=== PATIENT | female | born 1945 | race Caucasian/White ===

== ENCOUNTER 2016-12-02 14:07 | Day surgery (SDC) | payer MEDICARE ==
[~2016-12-02 14:07] MED LIST: ALLO100T PO; AMLO10TA2 PO; APIDINJ2 SQ; APIX5TAB PO; D3 U5000 PO; DIGO0.12 PO; DILT-48 PO; ENAL20TA PO; FURO40TA PO; IRON18TA2 PO; KRIL1000 PO; LANTINJ SQ; LEVO50TA4 PO; METO-489 PO; POTA-71; PRIL20CA9 PO; SIMV40TA PO; TERA2CAP3 PO
--- NOTE | 2016-12-02 15:35 | RADRPT ---
EXAM DATE/TIME: 12/02/2016 00:00 [facility] COMPARISON : No previous studies available for comparison. INDICATIONS : renal artery stenosis OBJECTIVE: Temperature: 98.0 Heart Rate: 68 Blood Pressure: 134/67 Respiratory: 18 Oximetry: 96 PNEUMONIA VACCINE: NO HISTORY OF PRESENT ILLNESS: 71-year-old female being seen secondary to bilateral renal artery stenoses. Patient has chronic renal insufficiency as well as hypertension requiring multiple antihypertensive medications. Angiography w ith intervention requested. Patient is on Eliquis for A. fib. She reports a fair amount of bleeding a t the time of her colonoscopy despite holding the medication. PAST MEDICAL HISTORY : Diabetes mellitus 1. Hypertension. gout a fib Hypothyroidism. Arthritis. panic attacks PAST SURGICAL HISTORY : pacemaker Cholecystectomy. cataracts Hysterectomy. thyroidectomy neck surgery SOCIAL HISTORY : No alcohol use. none. ALLERGIES: codeine gabapentin allopurinol 100 mg q.d. amlodipine 10 mg q.d. Lanoxin (Digoxin) 0.125 mg q.d. diltiazem er 240 mg q.d. Eliquis (Apixaban)5 mg b.i.d. enalapril 20 mg b.i.d. Lasix (Furosemide)40 mg b.i.d. levothyroxine 50 mcg mg q.d. metoprolol/hctz 100-12.5 mg prn Prilosec (Omeprazole)20 mg q.d. PHYSICAL EXAMINATION: General: Awake and alert. In no acute distress. Cardiovascular: Irregular heart rate. No murmurs or rubs. Respiratory: Clear to auscultation bilaterally. IMAGING STUDIES: CTA with runoff November 03, 2016 from [facility]. I reviewed these images. The patient has calci fied atherosclerotic plaque generating a bilateral 70-80% stenoses of the renal artery origins. No in flow is patent. ASSESSMENT: Bilateral high grade renal artery stenoses in a patient with a multi-antihypertensive medications and chronic renal insufficiency. I discussed with the patient the risks, benefits, and alternatives rega rding renal artery stenosis and stenting. I informed the patient that should we proceed with renal ar carmelo stenting this would not return her kidney function to normal but would help maintain the functio n she has a may be improve it somewhat. It may benefit her with respect to her hypertension. We will hold the Eliquis for 5 days secondary to her issue with bleeding during colonoscopy. She fully unders tood and wished to proceed. PLAN: Bilateral renal angiography and possible stent placement. TIME SPENT: <20 minutes Abhi Pena Jr., MD on December 02, 2016 at 15:22 Board Certified Radiologist. This report was verified electronically.
== END 2016-12-02 15:15 | disposition home or self-care (01) ==
LOC: HROP 14:07 → HRIP 14:08 → HROP 15:15
PROVIDERS: ATTEND Physician Assistant Medical
DX: I70.1 Atherosclerosis of renal artery (principal); I48.91 Unspecified atrial fibrillation; N18.9 Chronic kidney disease, unspecified; I12.9 Hypertensive chronic kidney disease with stage 1 through stage 4 chronic kidney disease, or unspecified chronic kidney disease; E11.22 Type 2 diabetes mellitus with diabetic chronic kidney disease; E03.9 Hypothyroidism, unspecified; M10.9 Gout, unspecified; Z90.49 Acquired absence of other specified parts of digestive tract; Z95.0 Presence of cardiac pacemaker
CPT/HCPCS: 99213; G0463

== ENCOUNTER 2016-12-08 08:24 | Day surgery (SDC) | payer MEDICARE ==
[2016-12-08] VITALS (7 sets, daily range): BP systolic 133–156; BP diastolic 67–90; PULSE 68–73; RESP 16–18; TEMP 97.6–97.7; O2SAT 93–98
[~2016-12-08] VITALS: Ht 152.4 cm; Wt 104.5 kg
[2016-12-08] MEDS ORDERED: SODIUM CHLOR 0.9% 1000 ML INJ 1,000 ML IV SCH (09:00)
[2016-12-08] MEDS ORDERED: PRIL20TA2 (09:07)
[2016-12-08 09:22] LABS: AUTOMATED NEUTROPHIL # 6.6 TH/MM3 (1.8-7.7); BASOPHIL # 0.1 TH/MM3 (0-0.2); BASOPHIL % 0.7 % (0.0-2.0); EOSINOPHIL # 0.3 TH/MM3 (0-0.4); EOSINOPHIL % 2.5 % (0.0-4.0); HEMATOCRIT 33.3 % (35.0-46.0); HEMO FLAGS DIFF FINAL; LYMPH % 25.2 % (9.0-44.0); LYMPHOCYTE # 2.7 TH/MM3 (1.0-4.8); MEAN CELL VOLUME 89.7 FL (80.0-100.0); MEAN CORPUSCULAR HEMOGLOBIN 29.4 PG (27.0-34.0); MEAN CORPUSCULAR HGB CONC 32.8 % (32.0-36.0); MONO % 9.2 % (0.0-8.0); NEUT % 62.4 % (16.0-70.0); PLATELET COUNT 145 TH/MM3 (150-450); RED BLOOD COUNT 3.71 MIL/MM3 (4.00-5.30); RED CELL DISTRIBUTION WIDTH 17.7 % (11.6-17.2); WHITE BLOOD COUNT 10.5 TH/MM3 (4.0-11.0)
[2016-12-08 09:33] LABS: APTT (PATIENT) 25.9 SEC (24.3-30.1); INTERNATIONAL NORMALIZED RATIO 1.1 RATIO; PROTHROMBIN TIME - PATIENT 11.9 SEC (9.8-11.6)
[2016-12-08] MEDS ORDERED: MIDAZOLAM HCL 2 MG/2 ML VIAL ONE ×2 (13:02→13:42)
[2016-12-08] MEDS ORDERED: fentaNYL CITRATE 250 MCG/5 ML AMP ONE (13:03)
[2016-12-08] MEDS ORDERED: LORazepam 2 MG/ML VIAL ONE (13:27)
[2016-12-08] MEDS ORDERED: HEPARIN SODIUM - IV 10,000 UNITS/10 ML VIAL ONE (14:28)
[2016-12-08] MEDS ORDERED: ceFAZolin 2 GM PREMIX 50 ML ONE (14:32)
--- NOTE | 2016-12-08 14:41 | PD.RAD ---
Post Procedure Progress Note Pre Procedure Diagnosis: (1) CKD (chronic kidney disease) (2) Hypertension (3) Renal artery stenosis, [place], bilateral Post Procedure Diagnosis: (1) CKD (chronic kidney disease) (2) Hypertension (3) Renal artery stenosis, [place], bilateral Procedure Date: Dec 08, 2016 Supervising Radiologist: Abhi Pena JR Proceduralist/Assist: Yuliya Tierney, RT(R), Leelee Saunders RT(R)() Anesthesia: Conscious Sedation Plan of Activity Patient to Unit: ROPU Patient Condition: Good See PACS Report for procedural detail/treatment Vascular-Arterial Procedure Procedure 1 Procedure Site: Right Renal, Left Renal Procedure(s): Stent Placement Access Access Site(s): Right Femoral Artery Closure Site(s): Right vascular closure device Findings: Bilateral renal artery stenosis responded well to primary stenting. Plan F/U with IR in 1 week Timothye Pratibha tomorrow Jr. Jean,Abhi Pereira MD Dec 08, 2016 14:41
[2016-12-08] MEDS ORDERED: IODIXANOL 320 MG/ML 50 ML VIAL (for RAD SPEC) I-ARTERIAL ONE (14:50)
--- NOTE | 2016-12-09 10:40 | RADRPT ---
EXAM DATE/TIME: 12/08/2016 12:17 [facility] COMPARISON: No previous studies available for comparison. INDICATIONS : Patient is in need of a bilateral renal angiogram with stenting due to bilateral high grade stenosis. The patient has renal insufficiency and refractory hypertension. MEDICAL HISTORY : History of HTN, DM, AFIB, gout, hyperthyroidism, legal blindness, chronic lower extremity edema and c ellulitis. SURGICAL HISTORY : History of colonoscopy, pacemaker, cholecystectomy, catract removal, hysterectomy, thyroidectomy, adán ast biopsy, neck surgery, knee surgery. ENCOUNTER: Initial ACUITY: 1 month PAIN SCORE: 0/10 FLUORO TIME: 10.3 minutes IMAGE SERIES: 20 ACCESS SITE: Right Femoral artery SEDATION TIME: 60 minutes CONTRAST: 1.) 107 cc Visipaque (iodixanol) MEDICATION(S): 1.) 1 mg lorazepam (Ativan) IV 2.) 3.5 mg midazolam (Versed) IV 3.) 175 mcg fentanyl (Sublimaze) IV 4.) 3000 units Heparin IV 5.) 1 g cefazolin (Ancef) IV Vancomycin within 2 hrs of procedure, Ancef (or alternative) within 1 hr of procedure. DEVICE(S): 1.) Right renal artery 6mm x 18mm x 150cm stent (balloon expanding) 2.) Left renal artery 5mm x 15mm x 150m stent (balloon expanding) 3.) Right common femoral artery 6Fr Angio-Seal PROCEDURE : 1. Ultrasound-guided puncture of the access site. 2. Angiography of the access site prior to closure device. 3. Conscious sedation with continuous EKG and Oximetry monitoring. 4. Percutaneous closure of the access site. 5. Angiography of the right renal artery 6. Angiography of the left renal artery 7. Primary stenting of the right renal artery 8. Primary stenting of the left renal artery The risks, benefits and alternatives to the procedure were explained and verbal and written consent w as obtained. I explained to the patient the need for stenting to try and preserve renal function as w ell as to improve her blood pressure. I informed her as I did at the time of the consult that the pro cedure may not benefit of either. The site was prepped in sterile fashion. Full sterile technique wa s used, including cap, mask, sterile gloves and gown and a large sterile sheet. Hand hygiene and 2% chlorhexidine and/or betadine/alcohol prep was utilized per protocol for cutaneous antisepsis. The s kin and subcutaneous tissues were infiltrated with local anesthetic solution. With ultrasound and fluoroscopic guidance the right common femoral artery was punctured and a vascula r sheath was placed. Angiography of the common femoral artery was performed for evaluation prior to percutaneous closure device placement. A 4 Turkish sheath was placed in the right groin. An Omni Flush catheter was passed into the abdominal aorta and abdominal aortogram performed. These images reveal bilateral renal artery stenoses as seen on the prior imaging. The right renal artery was selected with a contra catheter. Selective angiogra phy shows concentric atherosclerotic plaque involving the origin of the right renal artery extending for proximally 8 mm from the origin. This generates a 60-70% stenosis. Exchange for a 6 Turkish sheath was performed. An 018 wire was passed into the peripheral aspect of the right renal artery. Over thi s a 6 mm x 18 mm express balloon expandable stent was deployed. A followup angiogram shows resolution of the previously seen stenosis with good antegrade flow through the previously stenotic segment. At tention was then turned to the left renal artery. This was selected and the same fashion and angiogra phy reveals a 60% stenosis at the origin extending for proximally 9 mm. A 5 mm x 15 mm express stent was deployed within the left renal artery. Followup angiography shows resolution of the stenosis with good antegrade flow through the previously stenotic segment. Hemostasis was obtained with the prescribed medicated closure device. Conscious sedation was perform ed with the prescribed dosages and duration as above in the presence of an independent trained radiol ogy nurse to assist in the monitoring of the patient. EKG and oximetry remained stable throughout th e procedure. CONCLUSION: Significant bilateral renal artery stenoses which responded well to primary stenting. Abhi Pena Jr., MD on December 09, 2016 at 10:11 Board Certified Radiologist. This report was verified electronically.
== END 2016-12-08 17:45 | disposition home or self-care (01) ==
LOC: HROP 08:24 → HRIP 08:25 → HROP 17:45
PROVIDERS: ATTEND Physician Assistant Medical
DX: I70.1 Atherosclerosis of renal artery (principal); I12.9 Hypertensive chronic kidney disease with stage 1 through stage 4 chronic kidney disease, or unspecified chronic kidney disease; N18.9 Chronic kidney disease, unspecified; E11.22 Type 2 diabetes mellitus with diabetic chronic kidney disease; I48.91 Unspecified atrial fibrillation; M10.9 Gout, unspecified; E05.90 Thyrotoxicosis, unspecified without thyrotoxic crisis or storm; H54.8 Legal blindness, as defined in USA; R60.0 Localized edema
CPT/HCPCS: 36252; 37236; 37237; 76937; 85025; 85610; 85730; 99152; 99153; C1760; C1769; C1874; C1876; C1887; C1894; J0690; J1644; J2060; J2250; J3010; J7030; Q9967

== ENCOUNTER 2016-12-15 13:12 | Day surgery (SDC) | payer MEDICARE ==
[~2016-12-15 13:12] MED LIST changes: -PRIL20CA9 PO; +PRIL20TA2
--- NOTE | 2016-12-16 11:59 | RADRPT ---
EXAM DATE/TIME: 12/15/2016 00:00 [facility] COMPARISON : No previous studies available for comparison. INDICATIONS : Followup renal artery intervention HISTORY OF PRESENT ILLNESS: The patient is approximately one week status post bilateral renal artery stenting. Patient denies any problems. PHYSICAL EXAMINATION: General: Patient is awake and alert. No acute distress or pain. Right groin: No ecchymosis or hematoma. Access site is healing nicely. No erythema. ASSESSMENT: Patient doing well status post bilateral renal artery stenting. PLAN: Maintain follow up with primary as previously described. TIME SPENT: <15 minutes>> Abhi Pena Jr., MD on December 16, 2016 at 11:53 Board Certified Radiologist. This report was verified electronically.
== END 2016-12-15 13:55 | disposition home or self-care (01) ==
LOC: HROP 13:12 → HRIP 13:13 → HROP 13:55
PROVIDERS: ATTEND Radiology Body Imaging
DX: I70.1 Atherosclerosis of renal artery (principal)

== ENCOUNTER 2017-02-05 13:56 | Inpatient (IN) | payer MEDICARE ==
[~2017-02-05] VITALS: Ht 152.4 cm; Wt 104.6 kg
[2017-02-05 14:09] VITALS: BP 127/60; PULSE 72; RESP 16; TEMP 98.5; O2SAT 97
[2017-02-05] MEDS ORDERED: FERR325C PO (15:03)
--- NOTE | 2017-02-05 15:35 | PD ---
HPI Chief Complaint: Skin Problem Time Seen by Provider: 15:12 Travel History International Travel<30 days: No Contact w/Intl Traveler<30days: No Traveled to known affect area: No History of Present Illness HPI This 71-year-old female is complaining of swelling and redness of her left leg. She is having pain in the leg and it makes it difficult for her to walk. She has a history of diabetes. She has had a lot of infections in her legs in the past which is been on antibiotics. Her right leg has been affecting most of the time. She is on Eliquis for atrial fibrillation. She has a pacemaker. She is on Lantus twice daily for her diabetes. She is not aware of fever or chills. She was in a usual state of health until Tuesday. On Tuesday she was having persistent nausea and vomiting was unable to hold anything down. She is unable to take her Eliquis on that day. she also had some nausea and vomiting that started feeling better and then Tuesday thought she was okay she started having pain in her leg at that time. She had stents put in her renal arteries in November for renal artery stenosis. PFSH Past Medical History Cancer: No Cardiovascular Problems: Yes (PACER) High Cholesterol: Yes Diabetes: Yes Patient Takes Glucophage: No Endocrine: No Gastrointestinal Disorders: Yes (GERD) Genitourinary: No Hepatitis: No Hiatal Hernia: No Hypertension: Yes Immune Disorder: No Musculoskeletal: No Neurologic: No Psychiatric: No Reproductive: No Respiratory: No Pancreatitis: Yes Thyroid Disease: Yes Influenza Vaccination: No Past Surgical History Abdominal Surgery: Yes (COLONOSCOPY) AICD: No Cardiac Surgery: Yes Ear Surgery: No Endocrine Surgery: Yes (PARTIAL LEFT REMOVAL OF THYROID) Eye Surgery: Yes (BILATERAL CATARACTS+ LASER SGY) Genitourinary Surgery: No Gynecologic Surgery: Yes (LUCY) Hysterectomy: Yes Joint Replacement: No Oral Surgery: No Pacemaker: Yes Thoracic Surgery: Yes (RIGHT BREAST BX) Other Surgery: Yes Social History Alcohol Use: No Tobacco Use: No Substance Use: No Allergies-Medications (Allergen,Severity, Reaction): Coded Allergies: codeine (Unverified Allergy, Severe, Respiratory Failure, 02/05/17) Reported Meds & Prescriptions Reported Meds & Active Scripts Active Reported Metoprolol Tartrate 100 Mg Tab 100 Mg PO BID Iron (Ferrous Sulfate) 325 Mg Cap 65 Mg PO DAILY Prilosec (Omeprazole Magnesium) 20 Mg Tab D3 Ultra Strength (Cholecalciferol) 5,000 Unit Cap 5,000 Units PO DAILY [Potassium Gluconate] 99 Mg BID Levothyroxine (Levothyroxine Sodium) 50 Mcg Tab 125 Mcg PO DAILY Amlodipine (Amlodipine Besylate) 10 Mg Tab 10 Mg PO DAILY Digoxin 0.125 Mg Tab 0.125 Mg PO EVERY OTHER DAY Allopurinol 100 Mg Tab 100 Mg PO DAILY Terazosin (Terazosin HCl) 2 Mg Cap 2 Mg PO BID Furosemide 40 Mg Tab 80 Mg PO AC BREAKFAST Furosemide 40 Mg Tab 40 Mg PO AC LUNCH Simvastatin 40 Mg Tab 40 Mg PO HS Diltiazem ER 24 HR 240 Mg Caper 240 Mg PO DAILY Enalapril (Enalapril Maleate) 20 Mg Tab 20 Mg PO BID Eliquis (Apixaban) 5 Mg Tab 5 Mg PO BID Apidra Solostar Pen Inj (Insulin Glulisine Inj) 300 Unit/3 Ml Pen 8 Units SQ TIDAC Lantus Solostar Pen Inj (Insulin Glargine) 300 Unit/3 Ml Pen 80 Units SQ BID Review of Systems General / Constitutional: No: Fever, Chills Eyes: No: Diploplia, Blurred Vision HENT: No: Headaches Cardiovascular: No: Chest Pain or Discomfort, Palpitations Respiratory: No: Cough, Shortness of Breath Gastrointestinal: No: Vomiting, Diarrhea Genitourinary: No: Urgency Musculoskeletal: Positive: Myalgias, Pain Skin: Positive Rash Hematologic/Lymphatic: No: Easy Bruising Physical Exam Narrative GENERAL: Obese female SKIN: Focused skin assessment warm/dry. HEAD: Atraumatic. Normocephalic. EYES: Pupils equal and round. No scleral icterus. No injection or drainage. ENT: No nasal bleeding or discharge. Mucous membranes pink and moist. NECK: Trachea midline. No JVD. CARDIOVASCULAR: Regular rate and rhythm. No murmur appreciated. RESPIRATORY: No accessory muscle use. Clear to auscultation. Breath sounds equal bilaterally. GASTROINTESTINAL: Abdomen soft, non-tender, nondistended. Hepatic and splenic margins not palpable. MUSCULOSKELETAL: No obvious deformities. No clubbing. No cyanosis. No edema. Both legs are quite large. Her left leg has circumferential erythema of the lower leg. There is a erythematous hot area on the medial aspect of the left thigh. There is a small pustular lesion on the lateral aspect of the right lower leg NEUROLOGICAL: Awake and alert. No obvious cranial nerve deficits. Motor grossly within normal limits. Normal speech. PSYCHIATRIC: Appropriate mood and affect; insight and judgment normal. Data Data Last Documented VS Vital Signs Date Time Temp Pulse Resp B/P (MAP) Pulse Ox O2 Delivery O2 Flow Rate FiO2 02/05/17 17:04 70 18 128/64 (85) 97 Room Air 02/05/17 14:09 98.5 Orders Orders Complete Blood Count With Diff (02/05/17:21) Comprehensive Metabolic Panel (02/05/17:21) Lactic Acid Sepsis Protocol (02/05/17:21) Urinalysis - C+S If Indicated (02/05/17:21) Blood Culture (02/05/17:21) Blood Glucose (02/05/17:21) Iv Access Insert/Monitor (02/05/17:21) Oximetry (02/05/17:21) Us Leg Venous Doppler (02/05/17 15:21) Digoxin (02/05/17 17:51) Thyroid Stimulating Hormone (02/05/17 17:51) Vancomycin Inj (Vancomycin Inj) (02/05/17 18:00) Sodium Chlor 0.9% 1000 Ml Inj (Ns 1000 M (02/05/17 18:00) Admit Order (Ed Use Only) (02/05/17 17:57) Admit To Inpatient (02/05/17 ) Vital Signs (Adult) Q4H (02/05/17 17:57) Diet 1800 Ada Cons Carb (02/05/17 Dinner) Sodium Chloride 0.9% Flush (Ns Flush) (02/05/17 21:00) Sodium Chloride 0.9% Flush (Ns Flush) (02/05/17 18:00) Vancomycin Consult Pharmacy (Vancomycin (02/05/17 18:00) Acetaminophen (Tylenol) (02/05/17 18:00) Basic Metabolic Panel (Bmp) (02/06/17 06:00) Complete Blood Count With Diff (02/06/17 06:00) Heparin Inj (Heparin Inj) (02/05/17 20:00) Bedside Glucose AAKASH.CSUGAR (02/05/17 17:57) Blood Glucose Goal (Criteria) (02/05/17 17:57) Hypoglycemia 70 Mg/Dl Or < (02/05/17 17:57) Notify Dr: Other (02/05/17 17:57) Dextrose 50% In Umu (Vial) Inj (D50w (Vi (02/05/17 18:00) Glucagon Inj (Glucagon Inj) (02/05/17 18:00) Insulin Aspart Supplemtl Scale (Novolog (02/05/17 21:00) Allopurinol (Zyloprim) (02/06/17 09:00) Apixaban (Eliquis) (02/05/17 21:00) Digoxin (Lanoxin) (02/07/17 09:00) Diltiazem Cd (Cardizem Cd) (02/06/17 09:00) Enalapril (Vasotec) (02/05/17 21:00) Furosemide (Lasix) (02/06/17 07:00) Terazosin (Hytrin) (02/05/17 21:00) Ferrous Sulfate (Ferrous Sulfate) (02/06/17 09:00) Insulin Detemir Inj (Levemir Inj) (02/05/17 21:00) Insulin Aspart Inj (Novolog Inj) (02/06/17 08:00) Pravastatin (Pravachol) (02/05/17 21:00) Labs Laboratory Tests Test 02/05/17 15:35 02/05/17 15:45 02/05/17 16:50 Urine Color YELLOW Urine Turbidity CLEAR Urine pH 5.5 Urine Specific [place] 1.011 Urine Protein TRACE mg/dL Urine Glucose (UA) NEG mg/dL Urine Ketones NEG mg/dL Urine Occult Blood SMALL Urine Nitrite NEG Urine Bilirubin NEG Urine Leukocyte Esterase NEG Urine WBC 0-2 /hpf Urine Squamous Epithelial Cells 2-4 /hpf Microscopic Urinalysis Comment CULT NOT INDICATED White Blood Count 16.8 TH/MM3 Red Blood Count 3.59 MIL/MM3 Hemoglobin 10.5 GM/DL Hematocrit 32.0 % Mean Corpuscular Volume 89.2 FL Mean Corpuscular Hemoglobin 29.1 PG Mean Corpuscular Hemoglobin Concent 32.7 % Red Cell Distribution Width 16.5 % Platelet Count 159 TH/MM3 Mean Platelet Volume 10.9 FL Neutrophils (%) (Auto) 77.1 % Lymphocytes (%) (Auto) 12.0 % Monocytes (%) (Auto) 10.2 % Eosinophils (%) (Auto) 0.5 % Basophils (%) (Auto) 0.2 % Neutrophils # (Auto) 13.0 TH/MM3 Lymphocytes # (Auto) 2.0 TH/MM3 Monocytes # (Auto) 1.7 TH/MM3 Eosinophils # (Auto) 0.1 TH/MM3 Basophils # (Auto) 0.0 TH/MM3 CBC Comment AUTO DIFF Differential Comment AUTO DIFF CONFIRMED Toxic Granulation 1+ Dohle Bodies PRESENT Platelet Estimate NORMAL Platelet Morphology Comment NORMAL Blood Urea Nitrogen 42 MG/DL Creatinine 2.00 MG/DL Random Glucose 71 MG/DL Total Protein 7.8 GM/DL Albumin 3.5 GM/DL Calcium Level 9.1 MG/DL Alkaline Phosphatase 108 U/L Aspartate Amino Transf (AST/SGOT) 53 U/L Alanine Aminotransferase (ALT/SGPT) 42 U/L Total Bilirubin 0.5 MG/DL Sodium Level 133 MEQ/L Potassium Level 4.3 MEQ/L Chloride Level 95 MEQ/L Carbon Dioxide Level 29.2 MEQ/L Anion Gap 9 MEQ/L Estimat Glomerular Filtration Rate 24 ML/MIN Thyroid Stimulating Hormone 3rd Gen 1.640 uIU/ML Digoxin Level 1.0 NG/ML Lactic Acid Level 1.5 mmol/L MDM Medical Decision Making Medical Screen Exam Complete: Yes Emergency Medical Condition: Yes Medical Record Reviewed: Yes Differential Diagnosis Differential includes cellulitis, DVT, Narrative Course Ultrasound of the leg has been ordered as well as lab work. Disposition will be determined by oncoming physician Diagnosis Primary Impression: Cellulitis of leg, right Ozzie Myers MD Feb 05, 2017 15:35
[2017-02-05 15:49] VITALS: RESP 18; O2SAT 97
[2017-02-05 16:06] LABS: BLOOD, URINE SMALL (NEG); GLUCOSE,URINE NEG (NEG); KETONE, URINE NEG (NEG); NITRITE,URINE NEG (NEG); PH, URINE 5.5 (5.0-8.5)
[2017-02-05 16:14] LABS: ANION GAP 9 MEQ/L (5-15); BASOPHIL % 0.2 % (0.0-2.0); BICARBONATE 29.2 MEQ/L (21.0-32.0); BLOOD UREA NITROGEN 42 MG/DL (7-18); CHLORIDE 95 MEQ/L (98-107); EOSINOPHIL # 0.1 TH/MM3 (0-0.4); EOSINOPHIL % 0.5 % (0.0-4.0); MEAN CELL VOLUME 89.2 FL (80.0-100.0); MEAN CORPUSCULAR HEMOGLOBIN 29.1 PG (27.0-34.0); MEAN CORPUSCULAR HGB CONC 32.7 % (32.0-36.0); MONO % 10.2 % (0.0-8.0); NEUT % 77.1 % (16.0-70.0); PLATELET COUNT 159 TH/MM3 (150-450); RED BLOOD COUNT 3.59 MIL/MM3 (4.00-5.30); RED CELL DISTRIBUTION WIDTH 16.5 % (11.6-17.2); SODIUM (NA) 133 MEQ/L (136-145); WHITE BLOOD COUNT 16.8 TH/MM3 (4.0-11.0)
[2017-02-05 16:17] LABS: ALT (GPT) 42 U/L (10-53); AST (GOT) 53 U/L (15-37); GLOMERULAR FILTRATION RATE 24 ML/MIN (>89)
[2017-02-05 16:18] LABS: POTASSIUM 4.3 MEQ/L (3.5-5.1)
[2017-02-05 16:19] LABS: HEMO FLAGS AUTO DIFF; TOTAL BILIRUBIN ADULT 0.5 MG/DL (0.2-1.0)
[2017-02-05 16:20] LABS: ALKALINE PHOSPHATASE 108 U/L (45-117)
--- NOTE | 2017-02-05 16:40 | RADRPT ---
EXAM DATE/TIME: 02/05/2017 16:12 [facility] COMPARISON: No previous studies available for comparison. INDICATIONS : Left leg swelling and redness. MEDICAL HISTORY : Hypertension. Hypercholesterolemia. Thyroid disease. Renal disease. Diabetes. Pancreatitis. SURGICAL HISTORY : Hysterectomy. Bilateral cataract surgery. Pacemaker. Right breast biopsy. Colonoscopy. Right kn ee scope. Partial thyroidectomy, left. ENCOUNTER: Initial ACUITY: 2 day PAIN SCORE: 8/10 LOCATION: Left leg. TECHNIQUE: Venous ultrasound of the leg was performed from the inguinal ligament to the proximal calf. Real-jaleel e, color Doppler and spectral tracing, compression and augmentation techniques were used. FINDINGS: There is normal compressibility of the deep venous system from the inguinal region to the proximal ca lf. No echogenic clot is seen in the lumen of the common femoral, femoral, popliteal, and posterior tibial veins. There is a normal response of the venous system to proximal and distal augmentation an d respiration. CONCLUSION: Normal examination. Abhi Pena Jr., MD on February 05, 2017 at 16:37 Board Certified Radiologist. This report was verified electronically.
[2017-02-05 16:45] LABS: URINE COLOR YELLOW (YELLW/STRAW); WBC, URINE 0-2 /hpf (0-5)
[2017-02-05 16:46] LABS: COMMENT (UR) CULT NOT INDICATED; CULTURE IF INDICATED CULT NOT INDICATED
[2017-02-05 16:55] LABS: DOHLE BODIES PRESENT (NONE SEEN); PLATELET ESTIMATE SMEAR NORMAL (NORMAL); PLATELET MORPHOLOGY NORMAL (NORMAL); SCAN/DIFF AUTO DIFF CONFIRMED; TOXIC GRANULATION 1+ (NORMAL)
[2017-02-05 17:04] VITALS: BP 128/64; PULSE 70; RESP 18; O2SAT 97
--- NOTE | 2017-02-05 17:48 | PD ---
Physical Exam Narrative Patient was seen by ED physician and signed out to me. Data Data Last Documented VS Vital Signs Date Time Temp Pulse Resp B/P (MAP) Pulse Ox O2 Delivery O2 Flow Rate FiO2 02/05/17 17:04 70 18 128/64 (85) 97 Room Air 02/05/17 14:09 98.5 Orders Orders Complete Blood Count With Diff (02/05/17 15:21) Comprehensive Metabolic Panel (02/05/17 15:21) Lactic Acid Sepsis Protocol (02/05/17 15:21) Urinalysis - C+S If Indicated (02/05/17 15:21) Blood Culture (02/05/17 15:21) Blood Glucose (02/05/17 15:21) Iv Access Insert/Monitor (02/05/17 15:21) Oximetry (02/05/17 15:21) Us Leg Venous Doppler (02/05/17 15:21) Digoxin (02/05/17 17:51) Thyroid Stimulating Hormone (02/05/17 17:51) Vancomycin Inj (Vancomycin Inj) (02/05/17 18:00) Labs Laboratory Tests Test 02/05/17 15:35 02/05/17 15:45 02/05/17 16:50 Urine Color YELLOW Urine Turbidity CLEAR Urine pH 5.5 Urine Specific [place] 1.011 Urine Protein TRACE mg/dL Urine Glucose (UA) NEG mg/dL Urine Ketones NEG mg/dL Urine Occult Blood SMALL Urine Nitrite NEG Urine Bilirubin NEG Urine Leukocyte Esterase NEG Urine WBC 0-2 /hpf Urine Squamous Epithelial Cells 2-4 /hpf Microscopic Urinalysis Comment CULT NOT INDICATED White Blood Count 16.8 TH/MM3 Red Blood Count 3.59 MIL/MM3 Hemoglobin 10.5 GM/DL Hematocrit 32.0 % Mean Corpuscular Volume 89.2 FL Mean Corpuscular Hemoglobin 29.1 PG Mean Corpuscular Hemoglobin Concent 32.7 % Red Cell Distribution Width 16.5 % Platelet Count 159 TH/MM3 Mean Platelet Volume 10.9 FL Neutrophils (%) (Auto) 77.1 % Lymphocytes (%) (Auto) 12.0 % Monocytes (%) (Auto) 10.2 % Eosinophils (%) (Auto) 0.5 % Basophils (%) (Auto) 0.2 % Neutrophils # (Auto) 13.0 TH/MM3 Lymphocytes # (Auto) 2.0 TH/MM3 Monocytes # (Auto) 1.7 TH/MM3 Eosinophils # (Auto) 0.1 TH/MM3 Basophils # (Auto) 0.0 TH/MM3 CBC Comment AUTO DIFF Differential Comment AUTO DIFF CONFIRMED Toxic Granulation 1+ Dohle Bodies PRESENT Platelet Estimate NORMAL Platelet Morphology Comment NORMAL Blood Urea Nitrogen 42 MG/DL Creatinine 2.00 MG/DL Random Glucose 71 MG/DL Total Protein 7.8 GM/DL Albumin 3.5 GM/DL Calcium Level 9.1 MG/DL Alkaline Phosphatase 108 U/L Aspartate Amino Transf (AST/SGOT) 53 U/L Alanine Aminotransferase (ALT/SGPT) 42 U/L Total Bilirubin 0.5 MG/DL Sodium Level 133 MEQ/L Potassium Level 4.3 MEQ/L Chloride Level 95 MEQ/L Carbon Dioxide Level 29.2 MEQ/L Anion Gap 9 MEQ/L Estimat Glomerular Filtration Rate 24 ML/MIN Lactic Acid Level 1.5 mmol/L MDM Supervised Visit with IVETTE: No Interpretation(s) 1745 PM. Last Impressions Lower Extremity Ultrasound 02/05/17 1521 Signed Impressions: Service Date/Time: Sunday, February 05, 2017 16:12 - CONCLUSION: Normal examination. Abhi Pena Jr., MD 1745 PM. CBC WBC 16.8. Hemoglobin 10.5 hematocrit 32.0. 77 neutrophil. Sodium 133. BUN 42. Creatinine 2.0. Glucose 71. Lactic acid 1.5. UA is negative. Narrative Course Normal saline solution 70 cc an hour. Vancomycin 1 g IV. Diagnosis Primary Impression: Left leg cellulitis Additional Impression: CKD (chronic kidney disease) Qualified Codes: N18.4 - Chronic kidney disease, stage 4 (severe) Rogelio Ortiz MD Feb 05, 2017 17:48
[2017-02-05] MEDS ORDERED: GLUCAGON 1 MG/ML VIAL OTHER PRN (18:00)
[2017-02-05] MEDS ORDERED: Vancomycin Consult Pharmacy 1 EA OTHER SCH (18:00)
[2017-02-05] MEDS ORDERED: DEXTROSE 50% IN WATER 50 ML VIAL(D50) IV PUSH PRN (18:00)
[2017-02-05] MEDS ORDERED: SODIUM CHLORIDE 0.9% FLUSH 10 ML FLUSH IV FLUSH PRN (18:00)
[2017-02-05] MEDS ORDERED: VANCOMYCIN INJ 1,000 MG in SODIUM CHLOR 0.9% 250 ML INJ 250 ML IV ONE ×2 (18:00→19:00)
[2017-02-05] MEDS ORDERED: METO100T PO (18:51)
--- NOTE | 2017-02-05 19:06 | HHI.HP ---
HPI [facility] Hospitalists Primary Care Physician Leesa Turk MD Admission Diagnosis left leg cellulitis. Chronic renal disease. Diagnoses: Chief Complaint: Left lower extremity pain and redness Travel History International Travel<30 Days: No Contact w/Intl Traveler <30 Da: No Traveled to Known Affected Are: No Sepsis Criteria SIRS Criteria (2 or more): WBC > 32496, < 4000 or > 10% bands History of Present Illness This patient is a 71-year-old female with diabetes who has come to the hospital with left lower extremity pain for the last 24 hours. She reports chronic skin changes in the lower extremity consistent with venous stasis and lipo sclerosis. The patient has also chronic kidney disease and diabetes. She also trauma to the area but notes over the last wave hours the area in her lateral thigh and medial thigh has become increasingly edematous and erythematous with extreme amount of pain. The pain is severe and worse with touching and relieved with rest. She also fevers objectively but says she has felt warm and has had chills. Her daughter brought her in the hospital for these in issues. She does have leukocytosis. She notes no recent travel or trauma to the area. Patient admitted to the hospital for further evaluation of rapidly progressive cellulitis in diabetic patient Of note the patient has multiple medications which are duplicate in class. She is unsure what she be usually takes. Patient also recently had a evaluation and treatment with renal artery stent with interventional radiology team here at [place]. She has chronic kidney disease but does not have a manager fine Review of Systems Constitutional: COMPLAINS OF: Fever, Chills, Change in appetite, DENIES: Diaphoretic episodes, Fatigue, Weight gain, Weight loss, Dizziness, Night Sweats Endocrine: DENIES: Abnorml menstrual pattern, Heat/cold intolerance, Polydipsia , Polyuria, Polyphagia Eyes: DENIES: Blurred vision, Diplopia, Eye inflammation, Eye pain, Vision loss , Photosensitivity, Double Vision Ears, nose, mouth, throat: DENIES: Tinnitus, Hearing loss, Vertigo, Nasal discharge, Oral lesions, Throat pain, Hoarseness, Ear Pain, Running Nose, Epistaxis, Sinus Pain, Toothache, Odynophagia Respiratory: DENIES: Apneas, Cough, Snoring, Wheezing, Hemoptysis, Sputum production, Shortness of breath Cardiovascular: DENIES: Chest pain, Palpitations, Syncope, Dyspnea on Exertion , PND, Lower Extremity Edema, Orthopnea, Claudication Gastrointestinal: DENIES: Abdominal pain, Black stools, Bloody stools, Constipation, Diarrhea, Nausea, Vomiting, Difficulty Swallowing, Anorexia Genitourinary: DENIES: Abnormal vaginal bleeding, Dysmenorrhea, Dyspareunia, Sexual dysfunction, Urinary frequency, Urinary incontinence, Urgency, Hematuria , Dysuria, Nocturia, Vaginal discharge Musculoskeletal: COMPLAINS OF: Joint pain, DENIES: Muscle aches, Stiffness, Joint Swelling, Back pain, Neck pain Integumentary: DENIES: Abnormal pigmentation, Pruritus, Rash, Nail changes, Breast masses, Breast skin changes, Nipple discharge Hematologic/lymphatic: DENIES: Bruising, Lymphadenopathy Immunologic/allergic: DENIES: Eczema, Urticaria Neurologic: DENIES: Abnormal gait, Headache, Localized weakness, Paresthesias, Seizures, Speech Problems, Tremor, Poor Balance Psychiatric: DENIES: Anxiety, Confusion, Mood changes, Depression, Hallucinations, Agitation, Suicidal Ideation, Homicidal Ideation, Delusions Except as stated in HPI: all other systems reviewed are Neg Past Family Social History Past Medical History Diabetes Atrial fibrillation Past Surgical History Partial thyroidectomy, pacemaker, total abdominal hysterectomy Reported Medications Reviewed in the EMR Allergies: Coded Allergies: codeine (Unverified Allergy, Severe, Respiratory Failure, 02/05/17) Active Ordered Medications Reviewed in the EMR Family History Family history of diabetes and hypertension Social History Lives independently, no tobacco or alcohol dependency Physical Exam Vital Signs Vital Signs Date Time Temp Pulse Resp B/P (MAP) Pulse Ox O2 Delivery O2 Flow Rate FiO2 02/05/17 17:04 70 18 128/64 (85) 97 Room Air 02/05/17 15:49 18 97 Room Air 02/05/17 14:09 98.5 72 16 127/60 (82) 97 Physical Exam GENERAL: This is a well-nourished, well-developed patient, obese female who feels ill SKIN: diffuse erythema and edema of the left lower extremity in the anterior and lateral areas with chronic changes of venous stasis of liposclerosis HEAD: Atraumatic. Normocephalic. No temporal or scalp tenderness. EYES: Pupils equal round and reactive. Extraocular motions intact. No scleral icterus. No injection or drainage. ENT: Nose without bleeding, purulent drainage or septal hematoma. Throat without erythema, tonsillar hypertrophy or exudate. Uvula midline. Airway patent. NECK: Trachea midline. No JVD or lymphadenopathy. Supple, nontender, no meningeal signs. CARDIOVASCULAR: Regular rate and rhythm without murmurs, gallops, or rubs. RESPIRATORY: Clear to auscultation. Breath sounds equal bilaterally. No wheezes , rales, or rhonchi. GASTROINTESTINAL: Abdomen soft, non-tender, nondistended. No hepato-splenomegaly , or palpable masses. No guarding. MUSCULOSKELETAL: Extremities without clubbing, cyanosis, or edema. No joint tenderness, effusion, or edema noted. No calf tenderness. Negative Homans sign bilaterally. NEUROLOGICAL: Awake and alert. Cranial nerves II through XII intact. Motor and sensory grossly within normal limits. Five out of 5 muscle strength in all muscle groups. Normal speech. Laboratory Laboratory Tests Test 02/05/17 15:35 02/05/17 15:45 02/05/17 16:50 Urine Color YELLOW Urine Turbidity CLEAR Urine pH 5.5 Urine Specific [place] 1.011 Urine Protein TRACE Urine Glucose (UA) NEG Urine Ketones NEG Urine Occult Blood SMALL Urine Nitrite NEG Urine Bilirubin NEG Urine Leukocyte Esterase NEG Urine WBC 0-2 Urine Squamous Epithelial Cells 2-4 Microscopic Urinalysis Comment CULT NOT INDICATED White Blood Count 16.8 Red Blood Count 3.59 Hemoglobin 10.5 Hematocrit 32.0 Mean Corpuscular Volume 89.2 Mean Corpuscular Hemoglobin 29.1 Mean Corpuscular Hemoglobin Concent 32.7 Red Cell Distribution Width 16.5 Platelet Count 159 Mean Platelet Volume 10.9 Neutrophils (%) (Auto) 77.1 Lymphocytes (%) (Auto) 12.0 Monocytes (%) (Auto) 10.2 Eosinophils (%) (Auto) 0.5 Basophils (%) (Auto) 0.2 Neutrophils # (Auto) 13.0 Lymphocytes # (Auto) 2.0 Monocytes # (Auto) 1.7 Eosinophils # (Auto) 0.1 Basophils # (Auto) 0.0 CBC Comment AUTO DIFF Differential Comment AUTO DIFF CONFIRMED Toxic Granulation 1+ Dohle Bodies PRESENT Platelet Estimate NORMAL Platelet Morphology Comment NORMAL Blood Urea Nitrogen 42 Creatinine 2.00 Random Glucose 71 Total Protein 7.8 Albumin 3.5 Calcium Level 9.1 Alkaline Phosphatase 108 Aspartate Amino Transf (AST/SGOT) 53 Alanine Aminotransferase (ALT/SGPT) 42 Total Bilirubin 0.5 Sodium Level 133 Potassium Level 4.3 Chloride Level 95 Carbon Dioxide Level 29.2 Anion Gap 9 Estimat Glomerular Filtration Rate 24 Thyroid Stimulating Hormone 3rd Gen 1.640 Lactic Acid Level 1.5 Date/Time Source Procedure Growth Status 02/05/17 15:45 Blood Peripheral Aerobic Blood Culture Pending Received 02/05/17 15:45 Blood Peripheral Anaerobic Blood Culture Pending Received Result Diagram: 02/05/17 1545 02/05/17 1545 Imaging Last Impressions Lower Extremity Ultrasound 02/05/17 1521 Signed Impressions: Service Date/Time: Tuesday, February 05, 2017 16:12 - CONCLUSION: Normal examination. MD Sourav Laird Jr. VTE Risk Assessment Sourav VTE Risk Assessment: Mod/High Risk (score >= 2) [place] Risk Assessment Model Point Value = 1 Point Value = 2 Point Value = 3 Point Value = 5 Age 41-60 Minor surgery BMI > 25 kg/m2 Swollen legs Varicose veins or History of unexplained or recurrent spontaneous Oral contraceptives or hormone replacement Sepsis (< 1 month) Serious lung disease, including pneumonia (< 1 month) Abnormal pulmonary function Acute myocardial infarction Congestive heart failure (< 1 month) History of inflammatory bowel disease Medical patient at bed rest Age 61-74 Arthroscopic surgery Major open surgery (> 45 min) Laparoscopic surgery (> 45 min) Malignancy Confined to bed (> 72 hours) Immobilizing plaster cast Central venous access Age >= 75 History of VTE Family history of VTE Factor V Leiden Prothrombin [id number] Lupus anticoagulant Anticardiolipin antibodies Elevated serum homocysteine Heparin-induced thrombocytopenia Other congenital or acquired thrombophilia Stroke (< 1 month) Elective arthroplasty Hip, pelvis, or leg fracture Acute spinal cord injury (< 1 month) Prophylaxis Regimen Total Risk Factor Score Risk Level Prophylaxis Regimen 0-1 Low Early ambulation 2 Moderate Order ONE of the following: *Sequential Compression Device (SCD) *Heparin 5000 units SQ BID 3-4 Higher Order ONE of the following medications: *Heparin 5000 units SQ TID *Enoxaparin/Lovenox 40 mg SQ daily (WT < 150 kg, CrCl > 30 mL/min) *Enoxaparin/Lovenox 30 mg SQ daily (WT < 150 kg, CrCl > 10-29 mL/min) *Enoxaparin/Lovenox 30 mg SQ BID (WT < 150 kg, CrCl > 30 mL/min) AND/OR *Sequential Compression Device (SCD) 5 or more Highest Order ONE of the following medications: *Heparin 5000 units SQ TID (Preferred with Epidurals) *Enoxaparin/Lovenox 40 mg SQ daily (WT < 150 kg, CrCl > 30 mL/min) *Enoxaparin/Lovenox 30 mg SQ daily (WT < 150 kg, CrCl > 10-29 mL/min) *Enoxaparin/Lovenox 30 mg SQ BID (WT < 150 kg, CrCl > 30 mL/min) AND *Sequential Compression Device (SCD) Assessment and Plan Problem List: (1) Left leg cellulitis ICD Code: L03.116 - Cellulitis of left lower limb Status: Acute Plan: Patient with chronic venous stasis and now with left leg rapid the advancing cellulitis and leukocytosis Continue with IV vancomycin/Zosyn with pharmacy to follow Follow cultures ID to follow (2) Hypertension ICD Code: I10 - Essential (primary) hypertension Status: Acute Plan: Will need to review home medications as she has significant amount of polypharmacy and duplicate drugs. Continue to follow to avoid nephrotoxic injury We'll follow with IV hydration as well (3) Diabetes mellitus, type II ICD Code: E11.9 - Type 2 diabetes mellitus without complications Status: Acute (4) Hypothyroid ICD Code: E03.9 - Hypothyroidism, unspecified Status: Acute Plan: continue Synthroid (5) Atrial fibrillation ICD Code: I48.91 - Unspecified atrial fibrillation Status: Acute Plan: Patient on Eliquis and Cardizem Patient with pacemaker, continue telemetry, follow electrolytes Code Status Full code Discussed Condition With patient, VINCENT Fair, daughter Physician Certification 2 Midnight Certification Type: Admission for Inpatient Services Order for Inpatient Services The services are ordered in accordance with Medicare regulations or non- Medicare payer requirements, as applicable. In the case of services not specified as inpatient-only, they are appropriately provided as inpatient services in accordance with the 2-midnight benchmark. Estimated LOS (days): 3 3 days is the estimated time the patient will need to remain in the hospital, assuming treatment plan goals are met and no additional complications. Post-Hospital Plan: Home Rupal Shields MD Feb 05, 2017 19:06
[2017-02-05] MEDS: SODIUM CHLOR 0.9% 1000 ML INJ 1,000 ML IV SCH (19:33)
[2017-02-05 20:00] VITALS: BP 130/65; PULSE 78; RESP 18; TEMP 98.2; O2SAT 96
[2017-02-05] MEDS ORDERED: HEPARIN SODIUM - SQ 10,000 UNITS/ML VIAL SQ SCH (20:00)
[2017-02-05] MEDS ORDERED: PIPERACIL-TAZO 4.5 GM PREMIX 100 ML IV SCH (20:00)
[2017-02-05] MEDS ORDERED: METOPROLOL SUCCINATE 50 MG EXTENDED RELEASE TAB PO SCH (21:00)
[2017-02-05] MEDS ORDERED: NON-FORMULARY DRUG (Metoprolol Succinate/HCTZ 100-12.5 ER 1 TAB) PO SCH (21:00)
[2017-02-05] MEDS ORDERED: INSULIN DETEMIR 100 UNITS/ML VIAL SQ SCH (21:00)
[2017-02-05] MEDS: INSULIN ASPART SUPPLEMENTAL SCALE SQ SCH (21:00)
[2017-02-05] MEDS: SODIUM CHLORIDE 0.9% FLUSH 10 ML FLUSH IV FLUSH SCH (21:00)
[2017-02-05] MEDS ORDERED: HYDROCHLOROTHIAZIDE 12.5 MG CAP PO SCH (21:00)
[2017-02-05] MEDS: TERAZOSIN HCL 1 MG CAP PO SCH (22:41)
[2017-02-05] MEDS: PRAVASTATIN SOD 80 MG TAB PO SCH (22:41)
[2017-02-05] MEDS: APIXABAN 5 MG TABLET PO SCH (22:42)
[2017-02-05] MEDS: ENALAPRIL MALEATE 10 MG TAB PO SCH (22:42)
--- NOTE | 2017-02-05 23:23 | HHI.PR ---
Addendum to Inpatient Note Addendum Reason: Additional Documentation Additional Information Patient requesting something stronger than Tylenol for severe leg pain, told her nurse that she takes Tramadol 50 mg P.O. at home, will give one time dose - further management per attending. Dacia Xie Feb 05, 2017 23:23
[2017-02-05] MEDS ORDERED: traMADol HCL 50 MG TAB PO ONE (23:30)
[2017-02-05] MEDS: PIPERACIL-TAZO 2.25 GM PREMIX 50 ML IV SCH (23:40)
[2017-02-06] VITALS: BP 128/59; PULSE 73; RESP 18; TEMP 98.7; O2SAT 96
[2017-02-06 04:00] VITALS: BP 114/53; PULSE 66; RESP 18; TEMP 97.7; O2SAT 95
[2017-02-06] MEDS: PIPERACIL-TAZO 2.25 GM PREMIX 50 ML IV SCH ×2 (06:24→14:43)
[2017-02-06] MEDS: FUROSEMIDE 40 MG TAB PO SCH (06:24)
[2017-02-06] MEDS: LEVOTHYROXINE SODIUM 125 MCG TAB PO SCH (06:24)
[2017-02-06 07:50] VITALS: BP 137/70; PULSE 76; RESP 20; TEMP 97.9; O2SAT 95
[2017-02-06] MEDS: INSULIN ASPART SUPPLEMENTAL SCALE SQ SCH ×4 (08:00→21:00)
[2017-02-06 08:27] LABS: AUTOMATED NEUTROPHIL # 10.5 TH/MM3 (1.8-7.7); BASOPHIL # 0.1 TH/MM3 (0-0.2); BASOPHIL % 0.4 % (0.0-2.0); EOSINOPHIL # 0.1 TH/MM3 (0-0.4); EOSINOPHIL % 0.8 % (0.0-4.0); HEMATOCRIT 27.7 % (35.0-46.0); LYMPH % 12.3 % (9.0-44.0); LYMPHOCYTE # 1.7 TH/MM3 (1.0-4.8); MEAN CELL VOLUME 88.8 FL (80.0-100.0); MEAN CORPUSCULAR HEMOGLOBIN 29.2 PG (27.0-34.0); MEAN CORPUSCULAR HGB CONC 32.9 % (32.0-36.0); MONO % 10.2 % (0.0-8.0); NEUT % 76.3 % (16.0-70.0); PLATELET COUNT 159 TH/MM3 (150-450); POTASSIUM 3.6 MEQ/L (3.5-5.1); RED BLOOD COUNT 3.12 MIL/MM3 (4.00-5.30); RED CELL DISTRIBUTION WIDTH 16.5 % (11.6-17.2); WHITE BLOOD COUNT 13.8 TH/MM3 (4.0-11.0)
[2017-02-06 08:33] LABS: HEMO FLAGS DIFF FINAL
--- NOTE | 2017-02-06 08:51 | HHI.PR ---
Subjective Remarks Patient seen today in follow-up for left lower extremity cellulitis, relatively stable compared with lines drawn yesterday Pain is improved. Leukocytosis improved. Objective Vitals Vital Signs Date Time Temp Pulse Resp B/P (MAP) Pulse Ox O2 Delivery O2 Flow Rate FiO2 02/06/17 04:00 97.7 66 18 114/53 (73) 95 02/06/17 00:00 98.7 73 18 128/59 (82) 96 02/05/17 22:11 02/05/17 20:00 98.2 78 18 130/65 (86) 96 02/05/17 17:04 70 18 128/64 (85) 97 Room Air 02/05/17 15:49 18 97 Room Air 02/05/17 14:09 98.5 72 16 127/60 (82) 97 I/O 02/05/17 02/05/17 02/05/17 02/06/17 02/06/17 02/06/17 07:00 15:00 23:00 07:00 15:00 23:00 Intake Total 250 ml 1304 ml Balance 250 ml 1304 ml Intake Oral 480 ml IV Total 250 ml 824 ml # Voids 5 Result Diagram: 02/06/17 0659 02/06/17 0659 Imaging Last Impressions Lower Extremity Ultrasound 02/05/17 1521 Signed Impressions: Service Date/Time: Sunday, February 05, 2017 16:12 - CONCLUSION: Normal examination. Abhi Pena Jr., MD Objective Remarks GENERAL: This is a well-nourished, well-developed patient, in no apparent distress. CARDIOVASCULAR: Regular rate and rhythm without murmurs, gallops, or rubs. RESPIRATORY: Clear to auscultation. Breath sounds equal bilaterally. No wheezes , rales, or rhonchi. GASTROINTESTINAL: Abdomen soft, non-tender, nondistended. Normal active bowel sounds MUSCULOSKELETAL: Bilateral lower extremity edema, improved erythema of the left lower extremity NEURO: Alert & Oriented x4 to person, place, time, situation. Moves all ext x4 A/P Problem List: (1) Left leg cellulitis ICD Code: L03.116 - Cellulitis of left lower limb Status: Acute Plan: Patient with chronic venous stasis and now with left leg rapidly advancing cellulitis and leukocytosis, appears stable today Continue with IV vancomycin/Zosyn with pharmacy to follow Follow cultures ID to follow (2) Hypertension ICD Code: I10 - Essential (primary) hypertension Status: Acute Plan: Will need to review home medications as she has significant amount of polypharmacy and duplicate drugs. Continue to follow to avoid nephrotoxic injury We'll follow with IV hydration as well (3) Diabetes mellitus, type II ICD Code: E11.9 - Type 2 diabetes mellitus without complications Status: Acute (4) Atrial fibrillation ICD Code: I48.91 - Unspecified atrial fibrillation Status: Acute Plan: Patient on Eliquis, dig and Cardizem Patient with pacemaker, continue telemetry, follow electrolytes Rupal Shields MD Feb 06, 2017 08:51
[2017-02-06 08:59] LABS: BICARBONATE 28.9 MEQ/L (21.0-32.0)
[2017-02-06] MEDS ORDERED: PNEUMOCOCCAL POLYVALENT INJ 25 MCG/0.5 ML SYR IM ONE (09:00)
[2017-02-06] MEDS: SODIUM CHLORIDE 0.9% FLUSH 10 ML FLUSH IV FLUSH SCH ×2 (09:00→21:00)
[2017-02-06] MEDS: FERROUS SULFATE 325 MG (65 MG ELEMENTAL IRON) TAB PO SCH (09:00)
[2017-02-06] MEDS: ACETAMINOPHEN 500 MG CPLT PO PRN (09:20)
[2017-02-06] MEDS: INSULIN ASPART 1,000 UNITS/10 ML VIAL SQ SCH ×3 (09:22→17:00)
[2017-02-06] MEDS: SODIUM CHLOR 0.9% 1000 ML INJ 1,000 ML IV SCH ×2 (09:24→21:06)
[2017-02-06] MEDS: DILTIAZEM-CD 240 MG CAP ER PO SCH (09:25)
[2017-02-06] MEDS: METOPROLOL SUCCINATE 50 MG EXTENDED RELEASE TAB PO SCH ×2 (09:25→21:01)
[2017-02-06] MEDS: APIXABAN 5 MG TABLET PO SCH ×2 (09:26→21:01)
[2017-02-06] MEDS: ALLOPURINOL 100 MG TAB PO SCH (09:27)
[2017-02-06] MEDS: TERAZOSIN HCL 1 MG CAP PO SCH ×2 (09:27→21:01)
[2017-02-06] MEDS: ENALAPRIL MALEATE 10 MG TAB PO SCH ×2 (09:27→21:01)
[2017-02-06 11:50] VITALS: BP 118/79; PULSE 72; RESP 20; TEMP 97.1; O2SAT 95
--- NOTE | 2017-02-06 15:49 | PD.CONS ---
History of Present Illness Service ID CONSULT DR GATICA Consult Requested By ATTENDING Reason for Consult LEFT LEG CELLULITIS Primary Care Physician Leesa Turk MD Diagnoses: (1) CHF (congestive heart failure) (2) Bilateral lower leg cellulitis (3) CKD (chronic kidney disease) History of Present Illness 71 YR OLD FEMALE ADMITTED WITH FEVER / CHILLS AND LEFT LEG PAIN AND SWELLING. SHE STATES TUESDAY , TUESDAY SHE HAD MALAISE, NAUSEA AND VOMITING. SHE HAD PAIN IN THE LEG ON TUESDAY ( LEFTo AND ON TUESDAY IT WAS VERY RED AND TENDER. SHE HAS CHRONIC LYMPHEDEMA AND SWELLING OFF/ON TO HER LEGS. SHE HAD STREP + A MONTH AGO IN HER LEGS AND WAS TREATED WITH ORAL PCN. SHE IS FEELING BETTER TODAY BUT HER LEFT LEG IS STILL VERY SORE. PT HAS BEEN TREATED RECENTLY WITH MEDROL DOSE KEZIA FOR HER BLISTERS AND INFECTION IN HER LOWER LEG. Review of Systems Constitutional: COMPLAINS OF: Fever, Chills Eyes: DENIES: Diplopia Ears, nose, mouth, throat: DENIES: Hearing loss Respiratory: DENIES: Cough Gastrointestinal: DENIES: Black stools Genitourinary: DENIES: Abnormal vaginal bleeding Musculoskeletal: DENIES: Muscle aches Integumentary: DENIES: Abnormal pigmentation Hematologic/lymphatic: DENIES: Lymphadenopathy Immunologic/allergic: DENIES: Urticaria Neurologic: DENIES: Headache Psychiatric: DENIES: Mood changes Past Family Social History Allergies: Coded Allergies: codeine (Unverified Allergy, Severe, Respiratory Failure, 02/05/17) Past Medical History Past Medical History Diabetes Atrial fibrillation Past Surgical History Past Surgical History Partial thyroidectomy, pacemaker, total abdominal hysterectomy Reported Medications Reported Medications Reviewed in the EMR Allergies: Coded Allergies: codeine (Unverified Allergy, Severe, Respiratory Failure, 02/05/17) Active Ordered Medications Active Ordered Medications Reviewed in the EMR ON ZOSYN / VANCOMYCIN Family History Family History Family history of diabetes and hypertension Social History Social History Lives independently, no tobacco or alcohol dependency Physical Exam Vital Signs Vital Signs Date Time Temp Pulse Resp B/P (MAP) Pulse Ox O2 Delivery O2 Flow Rate FiO2 02/06/17 11:50 97.1 72 20 118/79 (92) 95 02/06/17 07:50 97.9 76 20 137/70 (92) 95 02/06/17 04:00 97.7 66 18 114/53 (73) 95 02/06/17 00:00 98.7 73 18 128/59 (82) 96 02/05/17 22:11 02/05/17 20:00 98.2 78 18 130/65 (86) 96 02/05/17 17:04 70 18 128/64 (85) 97 Room Air 02/05/17 15:49 18 97 Room Air Physical Exam GENERAL: This is a obese chronically ill patient, in no apparent distress. SKIN: No rashes, ecchymoses or lesions. Cool and dry. HEAD: Atraumatic. Normocephalic. No temporal or scalp tenderness. EYES: Pupils equal round and reactive. Extraocular motions intact. No scleral icterus. No injection or drainage. ENT: Nose without bleeding, purulent drainage or septal hematoma. Throat without erythema, tonsillar hypertrophy or exudate. Uvula midline. Airway patent. NECK: Trachea midline. No JVD or lymphadenopathy. Supple, nontender, no meningeal signs. CARDIOVASCULAR: Regular rate and rhythm without murmurs, gallops, or rubs. RESPIRATORY: Clear to auscultation. Breath sounds equal bilaterally. No wheezes , rales, or rhonchi. GASTROINTESTINAL: Abdomen soft, non-tender, nondistended. No hepato-splenomegaly , or palpable masses. No guarding. MUSCULOSKELETAL: Extremities without clubbing, cyanosis, but does have edema. left leg is red up to her mid thigh and inner thigh just above the knee is very red adn hot and tender. no fluctuance right lower leg with cellulitis and some healing round wounds. o drainage NEUROLOGICAL: Awake and alert. Cranial nerves II through XII intact. Motor and sensory grossly within normal limits. Five out of 5 muscle strength in all muscle groups. Normal speech. Laboratory Laboratory Tests Test 02/05/17 15:45 02/05/17 16:50 02/06/17 06:59 White Blood Count 16.8 13.8 Red Blood Count 3.59 3.12 Hemoglobin 10.5 9.1 Hematocrit 32.0 27.7 Mean Corpuscular Volume 89.2 88.8 Mean Corpuscular Hemoglobin 29.1 29.2 Mean Corpuscular Hemoglobin Concent 32.7 32.9 Red Cell Distribution Width 16.5 16.5 Platelet Count 159 159 Mean Platelet Volume 10.9 10.0 Neutrophils (%) (Auto) 77.1 76.3 Lymphocytes (%) (Auto) 12.0 12.3 Monocytes (%) (Auto) 10.2 10.2 Eosinophils (%) (Auto) 0.5 0.8 Basophils (%) (Auto) 0.2 0.4 Neutrophils # (Auto) 13.0 10.5 Lymphocytes # (Auto) 2.0 1.7 Monocytes # (Auto) 1.7 1.4 Eosinophils # (Auto) 0.1 0.1 Basophils # (Auto) 0.0 0.1 CBC Comment AUTO DIFF DIFF FINAL Differential Comment AUTO DIFF CONFIRMED Toxic Granulation 1+ Dohle Bodies PRESENT Platelet Estimate NORMAL Platelet Morphology Comment NORMAL Blood Urea Nitrogen 42 39 Creatinine 2.00 1.70 Random Glucose 71 86 Total Protein 7.8 Albumin 3.5 Calcium Level 9.1 8.0 Alkaline Phosphatase 108 Aspartate Amino Transf (AST/SGOT) 53 Alanine Aminotransferase (ALT/SGPT) 42 Total Bilirubin 0.5 Sodium Level 133 134 Potassium Level 4.3 3.6 Chloride Level 95 97 Carbon Dioxide Level 29.2 28.9 Anion Gap 9 8 Estimat Glomerular Filtration Rate 24 30 Thyroid Stimulating Hormone 3rd Gen 1.640 Digoxin Level 1.0 Lactic Acid Level 1.5 Date/Time Source Procedure Growth Status 02/05/17 15:45 Blood Peripheral Aerobic Blood Culture - Preliminary NO GROWTH IN 1 DAY Resulted 02/05/17 15:45 Blood Peripheral Anaerobic Blood Culture - Preliminary NO GROWTH IN 1 DAY Resulted Result Diagram: 02/06/17 0659 02/06/17 0659 Assessment and Plan Problem List: (1) Bilateral lower leg cellulitis ICD Codes: L03.116 - Cellulitis of left lower limb; L03.115 - Cellulitis of right lower limb Status: Acute (2) Left leg cellulitis ICD Codes: L03.116 - Cellulitis of left lower limb Status: Acute Plan: stop zosyn add rocephin given recent strep continue vancomycin follwo trough and fu (3) CKD (chronic kidney disease) ICD Codes: N18.9 - Chronic kidney disease, unspecified Status: Acute Problem Qualifiers (1) CKD (chronic kidney disease): Qualified Codes: N18.4 - Chronic kidney disease, stage 4 (severe) Astrid Luo Feb 06, 2017 15:49
[2017-02-06 15:50] VITALS: BP 107/69; PULSE 69; RESP 20; TEMP 97.3; O2SAT 94
[2017-02-06] MEDS: cefTRIAXone 1,000 MG/NS 100 ML IV SCH ×2 (16:36)
[2017-02-06] MEDS: VANCOMYCIN INJ 1,800 MG in SODIUM CHLORID 0.9% 500 ML INJ 500 ML IV SCH (17:39)
[2017-02-06 20:00] VITALS: BP 108/55; PULSE 72; RESP 17; TEMP 98.6; O2SAT 94
[2017-02-06] MEDS ORDERED: INSULIN DETEMIR 100 UNITS/ML VIAL SQ SCH (21:00)
[2017-02-06] MEDS: PRAVASTATIN SOD 80 MG TAB PO SCH (21:01)
[2017-02-06] MEDS: traMADol HCL 50 MG TAB PO PRN (21:22)
[2017-02-07] VITALS (7 sets, daily range): BP systolic 110–146; BP diastolic 61–72; PULSE 68–81; RESP 16–20; TEMP 96.1–99.6; O2SAT 91–95
[2017-02-07] MEDS: LEVOTHYROXINE SODIUM 125 MCG TAB PO SCH (05:45)
[2017-02-07] MEDS: APIXABAN 5 MG TABLET PO SCH ×2 (08:23→20:47)
[2017-02-07] MEDS: METOPROLOL SUCCINATE 50 MG EXTENDED RELEASE TAB PO SCH ×2 (08:23→20:48)
[2017-02-07] MEDS: TERAZOSIN HCL 1 MG CAP PO SCH ×2 (08:23→20:48)
[2017-02-07] MEDS: ENALAPRIL MALEATE 10 MG TAB PO SCH ×2 (08:23→20:48)
[2017-02-07] MEDS: DILTIAZEM-CD 240 MG CAP ER PO SCH (08:23)
[2017-02-07] MEDS: FERROUS SULFATE 325 MG (65 MG ELEMENTAL IRON) TAB PO SCH (08:24)
[2017-02-07] MEDS: DIGOXIN 0.125 MG TAB PO SCH (08:24)
[2017-02-07] MEDS: SODIUM CHLORIDE 0.9% FLUSH 10 ML FLUSH IV FLUSH SCH ×2 (08:24→20:47)
[2017-02-07] MEDS: ALLOPURINOL 100 MG TAB PO SCH (08:24)
[2017-02-07] MEDS: FUROSEMIDE 40 MG TAB PO SCH (08:27)
[2017-02-07] MEDS: INSULIN ASPART SUPPLEMENTAL SCALE SQ SCH ×4 (08:28→21:00)
--- NOTE | 2017-02-07 09:07 | HHI.IDPN ---
Subjective Subjective Remarks Feels a little better No fevers Left thigh with redness- never had this before per patient No shortness of breath Antibiotics Vancomycin and Ceftriaxone Lines Peripheral IV line Past Medical History Past Medical History Diabetes Atrial fibrillation Past Surgical History Partial thyroidectomy, pacemaker, total abdominal hysterectomy Allergies: Coded Allergies: codeine (Unverified Allergy, Severe, Respiratory Failure, 02/05/17) Review of Systems Constitutional Constitutional Remarks No fever, chills Objective . Vital Signs Date Time Temp Pulse Resp B/P (MAP) Pulse Ox O2 Delivery O2 Flow Rate FiO2 02/07/17 08:00 97.9 70 17 123/61 (81) 91 02/07/17 04:00 99.6 70 16 110/67 (81) 92 02/07/17 02:40 72 02/07/17 00:00 97.6 71 16 146/72 (96) 95 02/06/17 20:00 98.6 72 17 108/55 (72) 94 02/06/17 15:50 97.3 69 20 107/69 (82) 94 02/06/17 11:50 97.1 72 20 118/79 (92) 95 . Laboratory Tests Test 02/05/17 15:45 02/06/17 06:59 02/07/17 08:30 White Blood Count 16.8 TH/MM3 13.8 TH/MM3 Red Blood Count 3.59 MIL/MM3 3.12 MIL/MM3 Hemoglobin 10.5 GM/DL 9.1 GM/DL Hematocrit 32.0 % 27.7 % Mean Corpuscular Volume 89.2 FL 88.8 FL Mean Corpuscular Hemoglobin 29.1 PG 29.2 PG Mean Corpuscular Hemoglobin Concent 32.7 % 32.9 % Red Cell Distribution Width 16.5 % 16.5 % Platelet Count 159 TH/MM3 159 TH/MM3 Mean Platelet Volume 10.9 FL 10.0 FL Neutrophils (%) (Auto) 77.1 % 76.3 % Lymphocytes (%) (Auto) 12.0 % 12.3 % Monocytes (%) (Auto) 10.2 % 10.2 % Eosinophils (%) (Auto) 0.5 % 0.8 % Basophils (%) (Auto) 0.2 % 0.4 % Neutrophils # (Auto) 13.0 TH/MM3 10.5 TH/MM3 Lymphocytes # (Auto) 2.0 TH/MM3 1.7 TH/MM3 Monocytes # (Auto) 1.7 TH/MM3 1.4 TH/MM3 Eosinophils # (Auto) 0.1 TH/MM3 0.1 TH/MM3 Basophils # (Auto) 0.0 TH/MM3 0.1 TH/MM3 CBC Comment AUTO DIFF DIFF FINAL Differential Comment AUTO DIFF CONFIRMED Toxic Granulation 1+ Dohle Bodies PRESENT Platelet Estimate NORMAL Platelet Morphology Comment NORMAL Laboratory Tests Test 02/05/17 15:45 02/05/17 16:50 02/06/17 06:59 02/07/17 08:30 Blood Urea Nitrogen 42 MG/DL 39 MG/DL Creatinine 2.00 MG/DL 1.70 MG/DL Random Glucose 71 MG/DL 86 MG/DL Total Protein 7.8 GM/DL Albumin 3.5 GM/DL Calcium Level 9.1 MG/DL 8.0 MG/DL Alkaline Phosphatase 108 U/L Aspartate Amino Transf (AST/SGOT) 53 U/L Alanine Aminotransferase (ALT/SGPT) 42 U/L Total Bilirubin 0.5 MG/DL Sodium Level 133 MEQ/L 134 MEQ/L Potassium Level 4.3 MEQ/L 3.6 MEQ/L Chloride Level 95 MEQ/L 97 MEQ/L Carbon Dioxide Level 29.2 MEQ/L 28.9 MEQ/L Anion Gap 9 MEQ/L 8 MEQ/L Estimat Glomerular Filtration Rate 24 ML/MIN 30 ML/MIN Thyroid Stimulating Hormone 3rd Gen 1.640 uIU/ML Lactic Acid Level 1.5 mmol/L Microbiology Date/Time Source Procedure Growth Status 02/05/17 15:45 Blood Peripheral Aerobic Blood Culture - Preliminary NO GROWTH IN 1 DAY Resulted 02/05/17 15:45 Blood Peripheral Anaerobic Blood Culture - Preliminary NO GROWTH IN 1 DAY Resulted 02/05/17 15:40 Blood Peripheral Aerobic Blood Culture - Preliminary NO GROWTH IN 1 DAY Resulted 02/05/17 15:40 Blood Peripheral Anaerobic Blood Culture - Preliminary NO GROWTH IN 1 DAY Resulted Physical Exam GENERAL: This is a obese chronically ill patient, in no apparent distress- sitting up in chair SKIN: Erythema and induration left leg - left medial thigh and lateral thigh- less indurated and not worsening HEAD: Atraumatic. Normocephalic. No temporal or scalp tenderness. EYES: Pupils equal round and reactive. Extraocular motions intact. No scleral icterus. No injection or drainage. ENT: Nose without bleeding, purulent drainage or septal hematoma. Throat without erythema, tonsillar hypertrophy or exudate. Uvula midline. Airway patent. NECK: Trachea midline. No JVD or lymphadenopathy. Supple, nontender, no meningeal signs. CARDIOVASCULAR: Regular rate and rhythm without murmurs, gallops, or rubs. RESPIRATORY: Clear to auscultation. Breath sounds equal bilaterally. No wheezes , rales, or rhonchi. GASTROINTESTINAL: Abdomen soft, non-tender, nondistended. No hepato-splenomegaly , or palpable masses. No guarding. MUSCULOSKELETAL: Extremities without clubbing, cyanosis, but does have edema. left leg is red up to her mid thigh and inner thigh and also upper lateral thigh- No abscess felt- Slight improvement right lower leg with cellulitis and some healing round wounds. o drainage NEUROLOGICAL: Awake and alert. Cranial nerves II through XII intact. Motor and sensory grossly within normal limits. Five out of 5 muscle strength in all muscle groups. Normal speech. Assessment & Plan Diagnosis: (1) Bilateral lower leg cellulitis ICD Codes: L03.116 - Cellulitis of left lower limb; L03.115 - Cellulitis of right lower limb Status: Acute Plan: Follow blood cultures Follow CBC Continue IV Vancomycin - pharmacy to dose Continue IV Ceftriaxone (2) Diabetes mellitus, type II ICD Codes: E11.9 - Type 2 diabetes mellitus without complications Status: Acute (3) Hypertension ICD Codes: I10 - Essential (primary) hypertension Status: Acute (4) Hypothyroid ICD Codes: E03.9 - Hypothyroidism, unspecified Status: Acute Estrella Helm MD Feb 07, 2017 09:07
[2017-02-07 09:08] LABS: BASOPHIL # 0.1 TH/MM3 (0-0.2); BASOPHIL % 0.5 % (0.0-2.0); EOSINOPHIL # 0.2 TH/MM3 (0-0.4); EOSINOPHIL % 1.4 % (0.0-4.0); HEMATOCRIT 30.4 % (35.0-46.0); LYMPH % 14.5 % (9.0-44.0); LYMPHOCYTE # 2.5 TH/MM3 (1.0-4.8); MEAN CELL VOLUME 88.2 FL (80.0-100.0); MEAN CORPUSCULAR HEMOGLOBIN 28.2 PG (27.0-34.0); MONO % 9.9 % (0.0-8.0); NEUT % 73.7 % (16.0-70.0); PLATELET COUNT 167 TH/MM3 (150-450); RED BLOOD COUNT 3.45 MIL/MM3 (4.00-5.30); RED CELL DISTRIBUTION WIDTH 16.6 % (11.6-17.2); WHITE BLOOD COUNT 17.5 TH/MM3 (4.0-11.0)
[2017-02-07 09:10] LABS: POTASSIUM 4.2 MEQ/L (3.5-5.1)
[2017-02-07 09:13] LABS: BICARBONATE 26.2 MEQ/L (21.0-32.0)
[2017-02-07 09:16] LABS: HEMO FLAGS DIFF FINAL
--- NOTE | 2017-02-07 10:58 | HHI.PR ---
Subjective Remarks Patient seen and evaluated in follow-up for lower extremity cellulitis and for diabetes with hypoglycemia. No further hypoglycemia. Patient's long-acting insulin has been held. Blood sugars morning was 177 on sliding scale only. Patient also appears to be dehydrated with the 80 mg of Lasix. Care plan discussed with patient and with nursing team Objective Vitals Vital Signs Date Time Temp Pulse Resp B/P (MAP) Pulse Ox O2 Delivery O2 Flow Rate FiO2 02/07/17 08:00 97.9 70 17 123/61 (81) 91 02/07/17 04:00 99.6 70 16 110/67 (81) 92 02/07/17 02:40 72 02/07/17 00:00 97.6 71 16 146/72 (96) 95 02/06/17 20:00 98.6 72 17 108/55 (72) 94 02/06/17 15:50 97.3 69 20 107/69 (82) 94 02/06/17 11:50 97.1 72 20 118/79 (92) 95 I/O 02/06/17 02/06/17 02/06/17 02/07/17 02/07/17 02/07/17 07:00 15:00 23:00 07:00 15:00 23:00 Intake Total 1304 ml 220 ml 1247 ml 2182 ml Balance 1304 ml 220 ml 1247 ml 2182 ml Intake Oral 480 ml 660 ml 1600 ml IV Total 824 ml 220 ml 587 ml 582 ml # Voids 5 8 4 # Bowel Movements 0 Result Diagram: 02/07/1730 02/07/1730 Objective Remarks GENERAL: This is a well-nourished, well-developed patient, in no apparent distress. CARDIOVASCULAR: Regular rate and rhythm without murmurs, gallops, or rubs. RESPIRATORY: Clear to auscultation. Breath sounds equal bilaterally. No wheezes , rales, or rhonchi. GASTROINTESTINAL: Abdomen soft, non-tender, nondistended. Normal active bowel sounds MUSCULOSKELETAL: Bilateral lower extremity edema, improved erythema of the left lower extremity NEURO: Alert & Oriented x4 to person, place, time, situation. Moves all ext x4 A/P Problem List: (1) Left leg cellulitis ICD Code: L03.116 - Cellulitis of left lower limb Status: Acute Plan: Patient with chronic venous stasis and now with left leg rapidly advancing cellulitis and leukocytosis, appears stable today Continue with IV vancomycin/Zosyn with pharmacy to follow vancomycin Follow blood cultures ID following (2) Hypertension ICD Code: I10 - Essential (primary) hypertension Status: Acute Plan: Will need to review home medications as she has significant amount of polypharmacy and duplicate drugs. Continue to follow to avoid nephrotoxic injury We'll follow with IV hydration as well (3) Diabetes mellitus, type II ICD Code: E11.9 - Type 2 diabetes mellitus without complications Status: Acute Plan: Patient with some hypoglycemia, long acting insulin was decreased patient still has some hypoglycemia so withheld. Patient now on sliding scale but we will resume low dose long-acting insulin tonight and follow (4) Atrial fibrillation ICD Code: I48.91 - Unspecified atrial fibrillation Status: Acute Plan: Patient on Eliquis, digoxin and Cardizem Patient with pacemaker, DC telemetry follow electrolytes (5) Edema ICD Code: R60.9 - Edema, unspecified Plan: She was quite dehydrated on arrival, will decrease Lasix to 40 mg in a.m. (6) CKD (chronic kidney disease) ICD Code: N18.9 - Chronic kidney disease, unspecified Status: Acute Plan: Improved with IV hydration, will avoid nephrotoxic injury and follow renal function hytrin Assessment and Plan hx gout on allopurinol dvt ppx eliquis Problem Qualifiers (1) CKD (chronic kidney disease): Qualified Codes: N18.4 - Chronic kidney disease, stage 4 (severe) Rupal Shields MD Feb 07, 2017 10:58
[2017-02-07] MEDS: traMADol HCL 50 MG TAB PO PRN (16:00)
[2017-02-07] MEDS: cefTRIAXone 1,000 MG/NS 100 ML IV SCH ×2 (16:01)
[2017-02-07] MEDS: ACETAMINOPHEN 500 MG CPLT PO PRN (20:07)
[2017-02-07] MEDS: PRAVASTATIN SOD 80 MG TAB PO SCH (20:48)
[2017-02-07] MEDS: INSULIN DETEMIR 100 UNITS/ML VIAL SQ SCH (22:15)
[2017-02-08] VITALS: BP 122/59; PULSE 70; RESP 18; TEMP 96.7; O2SAT 90
[2017-02-08] MEDS: LEVOTHYROXINE SODIUM 125 MCG TAB PO SCH (06:26)
[2017-02-08] MEDS ORDERED: FUROSEMIDE 40 MG TAB PO SCH (07:00)
[2017-02-08 08:00] VITALS: BP 130/78; PULSE 80; RESP 21; TEMP 98.1; O2SAT 95
[2017-02-08] MEDS: ALLOPURINOL 100 MG TAB PO SCH (09:22)
[2017-02-08] MEDS: FERROUS SULFATE 325 MG (65 MG ELEMENTAL IRON) TAB PO SCH (09:22)
[2017-02-08] MEDS: APIXABAN 5 MG TABLET PO SCH ×2 (09:22→20:26)
[2017-02-08] MEDS: DILTIAZEM-CD 240 MG CAP ER PO SCH (09:22)
[2017-02-08] MEDS: METOPROLOL SUCCINATE 50 MG EXTENDED RELEASE TAB PO SCH ×2 (09:23→20:25)
[2017-02-08] MEDS: ENALAPRIL MALEATE 10 MG TAB PO SCH ×2 (09:23→20:25)
[2017-02-08] MEDS: TERAZOSIN HCL 1 MG CAP PO SCH ×2 (09:23→20:25)
[2017-02-08] MEDS: traMADol HCL 50 MG TAB PO PRN ×2 (09:26→16:50)
[2017-02-08] MEDS: SODIUM CHLORIDE 0.9% FLUSH 10 ML FLUSH IV FLUSH SCH ×2 (09:30→20:26)
[2017-02-08] MEDS: INSULIN ASPART SUPPLEMENTAL SCALE SQ SCH ×4 (09:32→20:42)
--- NOTE | 2017-02-08 11:09 | HHI.PR ---
Subjective Remarks The patient says that her leg was getting better. She wanted to know how the infection started. She said the pain medication was helping. She has been ambulating. Her friend was at the bedside. Objective Vitals Vital Signs Date Time Temp Pulse Resp B/P (MAP) Pulse Ox O2 Delivery O2 Flow Rate FiO2 02/08/17 08:00 98.1 80 21 130/78 (95) 95 02/08/17 00:00 96.7 70 18 122/59 (80) 90 02/07/17 20:00 96.1 73 20 126/70 (88) 92 02/07/17 16:00 97.7 81 17 118/69 (85) 94 02/07/17 12:00 98.2 68 18 121/72 (88) 93 I/O 02/07/17 02/07/17 02/07/17 02/08/17 02/08/17 02/08/17 07:00 15:00 23:00 07:00 15:00 23:00 Intake Total 2182 ml 1011 ml 200 ml Balance 2182 ml 1011 ml 200 ml Intake Oral 1600 ml 200 ml IV Total 582 ml 1011 ml # Voids 4 2 # Bowel Movements 0 Result Diagram: 02/07/17 0830 02/07/17 0830 Imaging Last Impressions Lower Extremity Ultrasound 02/05/17 1521 Signed Impressions: Service Date/Time: Sunday, February 05, 2017 16:12 - CONCLUSION: Normal examination. Abhi Pena Jr., MD Objective Remarks GENERAL: This is a well-nourished, well-developed patient, in no apparent distress. HEENT: NC, AT. CARDIOVASCULAR: Regular rate and rhythm without murmurs, gallops, or rubs. RESPIRATORY: Clear to auscultation. Breath sounds equal bilaterally. No wheezes , rales, or rhonchi. GASTROINTESTINAL: Abdomen soft, non-tender, nondistended. Normal active bowel sounds MUSCULOSKELETAL: Bilateral lower extremity edema, improved erythema of the left lower extremity. NEURO: Alert & Oriented x4 to person, place, time, situation. Moves all ext x4. PSYCH: Mood and affect appropriate. Medications and IVs Current Medications Medications (Trade) Dose Ordered Sig/Marilee Route Start Time Stop Time Status Last Admin (NS Flush) 2 ml BID IV FLUSH 02/05/17 21:00 02/08/17 09:30 (NS Flush) 2 ml UNSCH PRN IV FLUSH 02/05/17 18:00 Pharmacy Profile Note 0 ml @ 0 mls/hr UNSCH OTHER 02/05/17 18:00 (Tylenol) 500 mg Q4H PRN PO 02/05/17 18:00 02/07/17 20:07 (D50w (Vial) Inj) 50 ml UNSCH PRN IV PUSH 02/05/17 18:00 (Glucagon Inj) 1 mg UNSCH PRN OTHER 02/05/17 18:00 (NovoLOG SUPPLEMENTAL SCALE) 1 ACHS SLIDING SCALE SQ 02/05/17 21:00 02/08/17 09:32 (Zyloprim) 100 mg DAILY PO 02/06/17 09:00 02/08/17 09:22 (Eliquis) 5 mg BID PO 02/05/17 21:00 02/08/17 09:22 (Lanoxin) 0.125 mg EVERY OTHER DAY PO 02/07/17 09:00 02/07/17 08:24 (Cardizem Cd) 240 mg DAILY PO 02/06/17 09:00 02/08/17 09:22 (Vasotec) 20 mg BID PO 02/05/17 21:00 02/08/17 09:23 (Synthroid) 125 mcg DAILY@0600 PO 02/06/17 06:00 02/08/17 06:26 (Hytrin) 2 mg BID PO 02/05/17 21:00 02/08/17 09:23 (Ferrous Sulfate) 325 mg DAILY PO 02/06/17 09:00 02/08/17 09:22 (NovoLOG INJ) 8 units TIDAC SQ 02/06/17 08:00 Future Hold 02/06/17 12:33 (Pravachol) 80 mg HS PO 02/05/17 21:00 02/07/17 20:48 Vancomycin HCl 1800 mg/Sodium Chloride 518 ml @ 250 mls/hr Q48H IV 02/06/17 18:00 02/06/17 17:39 Miscellaneous Information SPECIFIC LAB TO BE DRAWN:[facility] TROUGH DATE TO BE DRMerari.. ONCE ONCE .XX 02/10/17 17:45 02/10/17 17:46 (Toprol Xl) 100 mg BID PO 02/05/17 21:00 02/08/17 09:23 Ceftriaxone Sodium 1000 mg/ Sodium Chloride 100 ml @ 200 mls/hr Q24H IV 02/06/17 17:00 02/07/17 16:01 (Ultram) 50 mg Q6H PRN PO 02/06/17 16:45 02/08/17 09:26 (Lasix) 40 mg AC BREAKFAST PO 02/08/17 07:00 02/08/17 06:27 (Levemir Inj) 40 units HS SQ 02/07/17 21:00 02/07/17 22:15 A/P Problem List: (1) Left leg cellulitis ICD Code: L03.116 - Cellulitis of left lower limb Status: Acute (2) Hypertension ICD Code: I10 - Essential (primary) hypertension Status: Acute (3) Diabetes mellitus, type II ICD Code: E11.9 - Type 2 diabetes mellitus without complications Status: Acute (4) Atrial fibrillation ICD Code: I48.91 - Unspecified atrial fibrillation Status: Acute (5) Edema ICD Code: R60.9 - Edema, unspecified (6) CKD (chronic kidney disease) ICD Code: N18.9 - Chronic kidney disease, unspecified Status: Acute Assessment and Plan Left leg cellulitis Patient with chronic venous stasis and now with left leg rapidly advancing cellulitis and leukocytosis. ID consult appreciated. Improved. - Continue with IV vancomycin and ceftriaxone per ID. - Follow blood cultures. - pain control as needed. Hypertension Well controlled at this time. - holding amlodipine and metoprolol at this time. Resume as needed. Diabetes mellitus, type II On insulin as an outpt. - continue long acting at a lower dose. - insulin sliding scale as needed. Atrial fibrillation Rate controlled. Patient on Eliquis, digoxin, metoprolol and Cardizem. Also has a pacemaker, - Continue home meds. Metoprolol on hold. Acute on chronic renal disease The pt appeared dehydrated. S/p IVFs. Unsure of baseline. - will avoid nephrotoxic injury and follow renal function. - hold Lasix. - IVFs. PPx: Eliquis Discharge Planning Awaiting improvement Problem Qualifiers (1) CKD (chronic kidney disease): Qualified Codes: N18.4 - Chronic kidney disease, stage 4 (severe) Yobani Spear DO Feb 08, 2017 11:08
[2017-02-08] MEDS ORDERED: SODIUM CHLOR 0.9% 1000 ML INJ 1,000 ML IV SCH (11:30)
[2017-02-08 12:00] VITALS: BP 128/76; PULSE 77; RESP 19; TEMP 98; O2SAT 94
[2017-02-08 16:00] VITALS: BP 130/72; PULSE 75; RESP 18; TEMP 97.7; O2SAT 95
[2017-02-08] MEDS: cefTRIAXone 1,000 MG/NS 100 ML IV SCH ×2 (16:45)
[2017-02-08] MEDS: VANCOMYCIN INJ 1,800 MG in SODIUM CHLORID 0.9% 500 ML INJ 500 ML IV SCH (18:50)
[2017-02-08 20:00] VITALS: BP 138/72; PULSE 72; RESP 18; TEMP 96.4; O2SAT 97
[2017-02-08] MEDS: PRAVASTATIN SOD 80 MG TAB PO SCH (20:25)
[2017-02-08] MEDS: INSULIN DETEMIR 100 UNITS/ML VIAL SQ SCH (20:42)
[2017-02-09] VITALS: BP 133/76; PULSE 73; RESP 18; TEMP 96.3; O2SAT 94
[2017-02-09] MEDS: traMADol HCL 50 MG TAB PO PRN ×4 (00:07→18:47)
[2017-02-09] MEDS: LEVOTHYROXINE SODIUM 125 MCG TAB PO SCH (06:11)
[2017-02-09 06:39] LABS: HEMATOCRIT 29.1 % (35.0-46.0); MEAN CELL VOLUME 88.3 FL (80.0-100.0); MEAN CORPUSCULAR HEMOGLOBIN 28.3 PG (27.0-34.0); MEAN CORPUSCULAR HGB CONC 32.1 % (32.0-36.0); PLATELET COUNT 219 TH/MM3 (150-450); RED BLOOD COUNT 3.29 MIL/MM3 (4.00-5.30); RED CELL DISTRIBUTION WIDTH 16.1 % (11.6-17.2); REVIEW FLAG FINAL; WHITE BLOOD COUNT 10.8 TH/MM3 (4.0-11.0)
[2017-02-09 06:48] LABS: POTASSIUM 4.1 MEQ/L (3.5-5.1)
[2017-02-09 06:53] LABS: MAGNESIUM 2.4 MG/DL (1.5-2.5)
[2017-02-09 08:00] VITALS: BP 125/66; PULSE 70; RESP 18; TEMP 96.1; O2SAT 95
[2017-02-09] MEDS: INSULIN ASPART SUPPLEMENTAL SCALE SQ SCH ×4 (08:00→20:51)
--- NOTE | 2017-02-09 08:22 | HHI.PR ---
Subjective Remarks The patient was sitting in a chair. She was about to eat breakfast. She said her pain was well-controlled. She has been ambulating. She believes the redness is receding. Objective Vitals Vital Signs Date Time Temp Pulse Resp B/P (MAP) Pulse Ox O2 Delivery O2 Flow Rate FiO2 02/09/17 08:00 96.1 70 18 125/66 (85) 95 02/09/17 00:00 96.3 73 18 133/76 (95) 94 02/08/17 20:00 96.4 72 18 138/72 (94) 97 02/08/17 17:50 18 02/08/17 16:00 97.7 75 18 130/72 (91) 95 02/08/17 12:00 98.0 77 19 128/76 (93) 94 I/O 02/08/17 02/08/17 02/08/17 02/09/17 02/09/17 02/09/17 07:00 15:00 23:00 07:00 15:00 23:00 Intake Total 200 ml 1620 ml 1280 ml Balance 200 ml 1620 ml 1280 ml Intake Oral 200 ml 1000 ml 280 ml IV Total 620 ml 1000 ml # Voids 2 4 2 # Bowel Movements 0 1 0 Result Diagram: 02/09/17 0515 02/09/17 0515 Imaging Last Impressions Lower Extremity Ultrasound 02/05/17 1521 Signed Impressions: Service Date/Time: Sunday, February 05, 2017 16:12 - CONCLUSION: Normal examination. Abhi Pena Jr., MD Objective Remarks GENERAL: This is a well-nourished, well-developed patient, in no apparent distress. HEENT: NC, AT. CARDIOVASCULAR: Regular rate and rhythm without murmurs, gallops, or rubs. RESPIRATORY: Clear to auscultation. Breath sounds equal bilaterally. No wheezes , rales, or rhonchi. GASTROINTESTINAL: Abdomen soft, non-tender, nondistended. Normal active bowel sounds MUSCULOSKELETAL: Bilateral lower extremity edema, improved erythema of the left lower extremity. NEURO: Alert & Oriented x4 to person, place, time, situation. Moves all ext x4. PSYCH: Mood and affect appropriate. Medications and IVs Current Medications Medications (Trade) Dose Ordered Sig/Marilee Route Start Time Stop Time Status Last Admin (NS Flush) 2 ml BID IV FLUSH 02/05/17 21:00 02/08/17 09:30 (NS Flush) 2 ml UNSCH PRN IV FLUSH 02/05/17 18:00 Pharmacy Profile Note 0 ml @ 0 mls/hr UNSCH OTHER 02/05/17 18:00 (Tylenol) 500 mg Q4H PRN PO 02/05/17 18:00 02/07/17 20:07 (D50w (Vial) Inj) 50 ml UNSCH PRN IV PUSH 02/05/17 18:00 (Glucagon Inj) 1 mg UNSCH PRN OTHER 02/05/17 18:00 (NovoLOG SUPPLEMENTAL SCALE) 1 ACHS SLIDING SCALE SQ 02/05/17 21:00 02/08/17 20:42 (Zyloprim) 100 mg DAILY PO 02/06/17 09:00 02/08/17 09:22 (Eliquis) 5 mg BID PO 02/05/17 21:00 02/08/17 20:26 (Lanoxin) 0.125 mg EVERY OTHER DAY PO 02/07/17 09:00 02/07/17 08:24 (Cardizem Cd) 240 mg DAILY PO 02/06/17 09:00 02/08/17 09:22 (Vasotec) 20 mg BID PO 02/05/17 21:00 02/08/17 20:25 (Synthroid) 125 mcg DAILY@0600 PO 02/06/17 06:00 02/09/17 06:11 (Hytrin) 2 mg BID PO 02/05/17 21:00 02/08/17 20:25 (Ferrous Sulfate) 325 mg DAILY PO 02/06/17 09:00 02/08/17 09:22 (Pravachol) 80 mg HS PO 02/05/17 21:00 02/08/17 20:25 Vancomycin HCl 1800 mg/Sodium Chloride 518 ml @ 250 mls/hr Q48H IV 02/06/17 18:00 02/08/17 18:50 Miscellaneous Information SPECIFIC LAB TO BE DRAWN:[facility] TROUGH DATE TO BE DRAmy. ONCE ONCE .XX 02/10/17 17:45 02/10/17 17:46 (Toprol Xl) 100 mg BID PO 02/05/17 21:00 02/08/17 20:25 Ceftriaxone Sodium 1000 mg/ Sodium Chloride 100 ml @ 200 mls/hr Q24H IV 02/06/17 17:00 02/08/17 16:45 (Ultram) 50 mg Q6H PRN PO 02/06/17 16:45 02/09/17 06:12 (Levemir Inj) 40 units HS SQ 02/07/17 21:00 02/08/17 20:42 A/P Problem List: (1) Left leg cellulitis ICD Code: L03.116 - Cellulitis of left lower limb Status: Acute (2) Hypertension ICD Code: I10 - Essential (primary) hypertension Status: Acute (3) Diabetes mellitus, type II ICD Code: E11.9 - Type 2 diabetes mellitus without complications Status: Acute (4) Atrial fibrillation ICD Code: I48.91 - Unspecified atrial fibrillation Status: Acute (5) Edema ICD Code: R60.9 - Edema, unspecified (6) CKD (chronic kidney disease) ICD Code: N18.9 - Chronic kidney disease, unspecified Status: Acute Assessment and Plan Left leg cellulitis Patient with chronic venous stasis and now with left leg rapidly advancing cellulitis and leukocytosis. ID consult appreciated. Improved. - Continue with IV vancomycin and ceftriaxone per ID. - Follow blood cultures. NGTD. - pain control as needed. Hypertension Well controlled at this time. - holding amlodipine at this time. Resume as needed. Diabetes mellitus, type II On insulin as an outpt. - continue long acting at a lower dose. - insulin sliding scale as needed. Atrial fibrillation Rate controlled. Patient on Eliquis, digoxin, metoprolol and Cardizem. Also has a pacemaker, - Continue home meds. Acute on chronic renal disease The pt appeared dehydrated. S/p IVFs. Unsure of baseline. - will avoid nephrotoxic injury and follow renal function. - hold Lasix. - s/p IVFs. PPx: Eliquis Discharge Planning Awaiting improvement, ID clearance Problem Qualifiers (1) CKD (chronic kidney disease): Qualified Codes: N18.4 - Chronic kidney disease, stage 4 (severe) Yobani Spear DO Feb 09, 2017 08:22
[2017-02-09] MEDS: ENALAPRIL MALEATE 10 MG TAB PO SCH ×2 (08:35→20:50)
[2017-02-09] MEDS: TERAZOSIN HCL 1 MG CAP PO SCH ×2 (08:35→20:50)
[2017-02-09] MEDS: SODIUM CHLORIDE 0.9% FLUSH 10 ML FLUSH IV FLUSH SCH ×2 (08:36→20:51)
[2017-02-09] MEDS: DILTIAZEM-CD 240 MG CAP ER PO SCH (08:36)
[2017-02-09] MEDS: DIGOXIN 0.125 MG TAB PO SCH (08:36)
[2017-02-09] MEDS: APIXABAN 5 MG TABLET PO SCH ×2 (08:36→20:50)
[2017-02-09] MEDS: FERROUS SULFATE 325 MG (65 MG ELEMENTAL IRON) TAB PO SCH (08:36)
[2017-02-09] MEDS: ALLOPURINOL 100 MG TAB PO SCH (08:37)
[2017-02-09] MEDS: METOPROLOL TARTRATE 100 MG TAB PO SCH ×2 (08:39→20:50)
[2017-02-09 12:00] VITALS: BP 126/71; PULSE 69; RESP 16; TEMP 96; O2SAT 95
[2017-02-09 16:00] VITALS: BP 121/68; PULSE 70; RESP 16; TEMP 96.2; O2SAT 95
--- NOTE | 2017-02-09 17:03 | HHI.IDPN ---
Note Infectious Disease Note ID Coverage. Notes reviewed. Afebrile. Legs continue to have erythema. Antibiotics Vancomycin and Ceftriaxone Lines Peripheral IV line Past Medical History Diabetes Atrial fibrillation Past Surgical History Partial thyroidectomy, pacemaker, total abdominal hysterectomy Allergies: Coded Allergies: codeine (Unverified Allergy, Severe, Respiratory Failure, 02/05/17) Objective Vital Signs Date Time Temp Pulse Resp B/P (MAP) Pulse Ox O2 Delivery O2 Flow Rate FiO2 02/09/17 16:00 96.2 70 16 121/68 (85) 95 02/09/17 12:00 96.0 69 16 126/71 (89) 95 02/09/17 08:00 96.1 70 18 125/66 (85) 95 02/09/17 00:00 96.3 73 18 133/76 (95) 94 02/08/17 20:00 96.4 72 18 138/72 (94) 97 02/08/17 17:50 18 Laboratory Tests Test 02/09/17 05:15 White Blood Count 10.8 TH/MM3 Red Blood Count 3.29 MIL/MM3 Hemoglobin 9.3 GM/DL Hematocrit 29.1 % Mean Corpuscular Volume 88.3 FL Mean Corpuscular Hemoglobin 28.3 PG Mean Corpuscular Hemoglobin Concent 32.1 % Red Cell Distribution Width 16.1 % Platelet Count 219 TH/MM3 Mean Platelet Volume 9.3 FL Laboratory Tests Test 02/09/17 05:15 Blood Urea Nitrogen 32 MG/DL Creatinine 1.40 MG/DL Random Glucose 117 MG/DL Calcium Level 8.1 MG/DL Magnesium Level 2.4 MG/DL Sodium Level 137 MEQ/L Potassium Level 4.1 MEQ/L Chloride Level 102 MEQ/L Carbon Dioxide Level 26.0 MEQ/L Anion Gap 9 MEQ/L Estimat Glomerular Filtration Rate 37 ML/MIN Microbiology Date/Time Source Procedure Growth Status 02/05/17 15:45 Blood Peripheral Aerobic Blood Culture - Preliminary NO GROWTH IN 1 DAY Resulted 02/05/17 15:45 Blood Peripheral Anaerobic Blood Culture - Preliminary NO GROWTH IN 1 DAY Resulted 02/05/17 15:40 Blood Peripheral Aerobic Blood Culture - Preliminary NO GROWTH IN 1 DAY Resulted 02/05/17 15:40 Blood Peripheral Anaerobic Blood Culture - Preliminary NO GROWTH IN 1 DAY Resulted GENERAL: Patient is in no acute distress. HEENT: EOMI, No icterus. NECK: Supple. LUNGS: Clear breath sounds. CARDIAC: Regular rate and rhythm ABDOMEN: Soft, non tender. EXTREMITIES: Moderate erythema at the tibia and thigh on the left and tibia and thigh on the right. (+) edema. SKIN: No rash. Assessment & Plan Diagnosis: (1) Bilateral lower leg cellulitis ICD Codes: L03.116 - Cellulitis of left lower limb; L03.115 - Cellulitis of right lower limb Status: Acute Continue IV Vancomycin - pharmacy to dose Continue IV Ceftriaxone. She needs another couple of days of the IV antibiotics. If continued improvement she can be switched to PO. (2) Diabetes mellitus, type II ICD Codes: E11.9 - Type 2 diabetes mellitus without complications Status: Acute (3) Acute renal failure. Ricky Franklin MD Feb 09, 2017 17:03
[2017-02-09] MEDS: cefTRIAXone 1,000 MG/NS 100 ML IV SCH ×2 (17:20)
[2017-02-09 20:00] VITALS: BP 145/75; PULSE 72; RESP 20; TEMP 96.9; O2SAT 96
[2017-02-09] MEDS: PRAVASTATIN SOD 80 MG TAB PO SCH (20:50)
[2017-02-09] MEDS: INSULIN DETEMIR 100 UNITS/ML VIAL SQ SCH (20:51)
[2017-02-10] VITALS: BP 149/76; PULSE 71; RESP 18; TEMP 96.5; O2SAT 95
[2017-02-10] MEDS: traMADol HCL 50 MG TAB PO PRN ×3 (01:13→13:54)
[2017-02-10] MEDS: LEVOTHYROXINE SODIUM 125 MCG TAB PO SCH (06:05)
[2017-02-10 06:19] VITALS: RESP 18
[2017-02-10 08:00] VITALS: BP 130/91; PULSE 70; RESP 16; TEMP 96.7; O2SAT 94
[2017-02-10] MEDS: APIXABAN 5 MG TABLET PO SCH ×2 (08:00→20:52)
[2017-02-10] MEDS: INSULIN ASPART SUPPLEMENTAL SCALE SQ SCH ×4 (08:00→21:00)
[2017-02-10] MEDS: FERROUS SULFATE 325 MG (65 MG ELEMENTAL IRON) TAB PO SCH (08:00)
[2017-02-10] MEDS: TERAZOSIN HCL 1 MG CAP PO SCH ×2 (08:00→20:52)
[2017-02-10] MEDS: ENALAPRIL MALEATE 10 MG TAB PO SCH ×2 (08:00→20:53)
[2017-02-10] MEDS: DILTIAZEM-CD 240 MG CAP ER PO SCH (08:01)
[2017-02-10] MEDS: ALLOPURINOL 100 MG TAB PO SCH (08:01)
[2017-02-10] MEDS: SODIUM CHLORIDE 0.9% FLUSH 10 ML FLUSH IV FLUSH SCH ×2 (08:01→21:00)
[2017-02-10] MEDS: METOPROLOL TARTRATE 100 MG TAB PO SCH ×2 (08:01→20:52)
[2017-02-10 08:19] LABS: POTASSIUM 4.4 MEQ/L (3.5-5.1)
[2017-02-10 08:22] LABS: BICARBONATE 25.3 MEQ/L (21.0-32.0); MAGNESIUM 2.3 MG/DL (1.5-2.5)
[2017-02-10] MEDS: LACTIC ACID (AMMONIUM LACTATE) 12% LOTION 225 GM BTL TOPICAL SCH ×2 (11:45→20:57)
[2017-02-10 12:00] VITALS: BP 136/85; PULSE 64; RESP 14; TEMP 95.5; O2SAT 93
--- NOTE | 2017-02-10 12:24 | HHI.PR ---
Subjective Remarks The patient said that her legs were feeling better and improving. She said she would like to follow-up with a kidney doctor after the hospitalization. She says she has been told she has kidney disease but has never followed up with a kidney doctor. She was make sure that her infection will be cleared so she doesn't have to keep coming back to the hospital. Discussed with nursing. Objective Vitals Vital Signs Date Time Temp Pulse Resp B/P (MAP) Pulse Ox O2 Delivery O2 Flow Rate FiO2 02/10/17 08:00 96.7 70 16 130/91 (104) 94 02/10/17 06:19 18 02/10/17 00:00 96.5 71 18 149/76 (100) 95 02/09/17 20:00 96.9 72 20 145/75 (98) 96 02/09/17 16:00 96.2 70 16 121/68 (85) 95 I/O 02/09/17 02/09/17 02/09/17 02/10/17 02/10/17 02/10/17 07:00 15:00 23:00 07:00 15:00 23:00 Intake Total 1280 ml 1160 ml 240 ml Balance 1280 ml 1160 ml 240 ml Intake Oral 280 ml 1060 ml 240 ml IV Total 1000 ml 100 ml # Voids 2 8 # Bowel Movements 0 2 Result Diagram: 02/09/17 0515 02/10/17 0744 Imaging Last Impressions Lower Extremity Ultrasound 02/05/17 1521 Signed Impressions: Service Date/Time: Sunday, February 05, 2017 16:12 - CONCLUSION: Normal examination. Abhi Pena Jr., MD Objective Remarks GENERAL: This is a well-nourished, well-developed patient, in no apparent distress. HEENT: NC, AT. CARDIOVASCULAR: Regular rate and rhythm without murmurs, gallops, or rubs. RESPIRATORY: Clear to auscultation. Breath sounds equal bilaterally. No wheezes , rales, or rhonchi. GASTROINTESTINAL: Abdomen soft, non-tender, nondistended. Normal active bowel sounds MUSCULOSKELETAL: Bilateral lower extremity edema with improved erythema. Nontender to palpation. NEURO: Alert & Oriented x4 to person, place, time, situation. Moves all ext x4. PSYCH: Mood and affect appropriate. Medications and IVs Current Medications Medications (Trade) Dose Ordered Sig/Marilee Route Start Time Stop Time Status Last Admin (NS Flush) 2 ml BID IV FLUSH 02/05/17 21:00 02/10/17 08:01 (NS Flush) 2 ml UNSCH PRN IV FLUSH 02/05/17 18:00 Pharmacy Profile Note 0 ml @ 0 mls/hr UNSCH OTHER 02/05/17 18:00 (Tylenol) 500 mg Q4H PRN PO 02/05/17 18:00 02/07/17 20:07 (D50w (Vial) Inj) 50 ml UNSCH PRN IV PUSH 02/05/17 18:00 (Glucagon Inj) 1 mg UNSCH PRN OTHER 02/05/17 18:00 (NovoLOG SUPPLEMENTAL SCALE) 1 ACHS SLIDING SCALE SQ 02/05/17 21:00 02/10/17 11:50 (Zyloprim) 100 mg DAILY PO 02/06/17 09:00 02/10/17 08:01 (Eliquis) 5 mg BID PO 02/05/17 21:00 02/10/17 08:00 (Lanoxin) 0.125 mg EVERY OTHER DAY PO 02/07/17 09:00 02/09/17 08:36 (Cardizem Cd) 240 mg DAILY PO 02/06/17 09:00 02/10/17 08:01 (Vasotec) 20 mg BID PO 02/05/17 21:00 02/10/17 08:00 (Synthroid) 125 mcg DAILY@0600 PO 02/06/17 06:00 02/10/17 06:05 (Hytrin) 2 mg BID PO 02/05/17 21:00 02/10/17 08:00 (Ferrous Sulfate) 325 mg DAILY PO 02/06/17 09:00 02/10/17 08:00 (Pravachol) 80 mg HS PO 02/05/17 21:00 02/09/17 20:50 Vancomycin HCl 1800 mg/Sodium Chloride 518 ml @ 250 mls/hr Q48H IV 02/06/17 18:00 02/08/17 18:50 Miscellaneous Information SPECIFIC LAB TO BE DRAWN:VANCO TROUGH DATE TO BE DRMerari.. ONCE ONCE .XX 02/10/17 17:45 02/10/17 17:46 Ceftriaxone Sodium 1000 mg/ Sodium Chloride 100 ml @ 200 mls/hr Q24H IV 02/06/17 17:00 02/09/17 17:20 (Ultram) 50 mg Q6H PRN PO 02/06/17 16:45 02/10/17 08:01 (Levemir Inj) 40 units HS SQ 02/07/17 21:00 02/09/17 20:51 (Lopressor) 100 mg Q12HR PO 02/09/17 09:00 02/10/17 08:01 (Lac-Hydrin 12% Lotion) 1 applic BID TOPICAL 02/10/17 11:15 02/10/17 11:45 A/P Problem List: (1) Left leg cellulitis ICD Code: L03.116 - Cellulitis of left lower limb Status: Acute (2) Hypertension ICD Code: I10 - Essential (primary) hypertension Status: Acute (3) Diabetes mellitus, type II ICD Code: E11.9 - Type 2 diabetes mellitus without complications Status: Acute (4) Atrial fibrillation ICD Code: I48.91 - Unspecified atrial fibrillation Status: Acute (5) Edema ICD Code: R60.9 - Edema, unspecified (6) CKD (chronic kidney disease) ICD Code: N18.9 - Chronic kidney disease, unspecified Status: Acute Assessment and Plan Left leg cellulitis Patient with chronic venous stasis and now with left leg rapidly advancing cellulitis and leukocytosis. ID consult appreciated. Improved. - Continue with IV vancomycin and ceftriaxone per ID. - Follow blood cultures. NGTD. - pain control as needed. Acute on chronic renal disease S/p IVFs. Unsure of baseline. Creatinine stable. Needs diuresis for above condition. - will try to avoid nephrotoxic injury and follow renal function. - resume Lasix 40 mg BID. - consult nephrology to assist with diuresis in setting of renal disease. She will also need outpt follow-up. - start low dose lisinopril. Hypertension Well controlled at this time. - DC amlodipine as it contributes to lower extremity edema. - Add lisinopril as the patient has chronic kidney disease likely from diabetes. Diabetes mellitus, type II On insulin as an outpt. - continue long acting at a lower dose. Add 5 units aspart with meals. - insulin sliding scale as needed. Atrial fibrillation Rate controlled. Patient on Eliquis, digoxin, metoprolol and Cardizem. Also has a pacemaker, - Continue home meds. PPx: Eliquis Discharge Planning Awaiting improvement, ID clearance, nephrology eval Problem Qualifiers (1) CKD (chronic kidney disease): Qualified Codes: N18.4 - Chronic kidney disease, stage 4 (severe) Yobani Spear DO Feb 10, 2017 12:24
[2017-02-10] MEDS: FUROSEMIDE 40 MG TAB PO SCH (13:57)
[2017-02-10] MEDS: LISINOPRIL 5 MG TAB PO SCH (13:57)
[2017-02-10] MEDS ORDERED: ACETAMINOPHEN 325 MG TAB PO PRN (14:00)
[2017-02-10] MEDS ORDERED: PILL SPLITTER OTHER PRN (14:00)
[2017-02-10 16:00] VITALS: BP 142/88; PULSE 72; RESP 14; TEMP 96.4; O2SAT 98
--- NOTE | 2017-02-10 16:52 | HHI.IDPN ---
Note Infectious Disease Note ID Coverage. Notes reviewed. Says her arthritis is acting up now that the weather is cold. Afebrile. Legs have less erythema. Antibiotics Vancomycin and Ceftriaxone Lines Peripheral IV line Past Medical History Diabetes Atrial fibrillation Past Surgical History Partial thyroidectomy, pacemaker, total abdominal hysterectomy Allergies: Coded Allergies: codeine (Unverified Allergy, Severe, Respiratory Failure, 02/05/17) Objective Vital Signs Date Time Temp Pulse Resp B/P (MAP) Pulse Ox O2 Delivery O2 Flow Rate FiO2 02/10/17 12:00 95.5 64 14 136/85 (102) 93 02/10/17 08:00 96.7 70 16 130/91 (104) 94 02/10/17 06:19 18 02/10/17 00:00 96.5 71 18 149/76 (100) 95 02/09/17 20:00 96.9 72 20 145/75 (98) 96 Laboratory Tests Test 02/09/17 05:15 White Blood Count 10.8 TH/MM3 Red Blood Count 3.29 MIL/MM3 Hemoglobin 9.3 GM/DL Hematocrit 29.1 % Mean Corpuscular Volume 88.3 FL Mean Corpuscular Hemoglobin 28.3 PG Mean Corpuscular Hemoglobin Concent 32.1 % Red Cell Distribution Width 16.1 % Platelet Count 219 TH/MM3 Mean Platelet Volume 9.3 FL Laboratory Tests Test 02/09/17 05:15 02/10/17 07:44 Blood Urea Nitrogen 32 MG/DL 34 MG/DL Creatinine 1.40 MG/DL 1.50 MG/DL Random Glucose 117 MG/DL 166 MG/DL Calcium Level 8.1 MG/DL 8.5 MG/DL Magnesium Level 2.4 MG/DL 2.3 MG/DL Sodium Level 137 MEQ/L 135 MEQ/L Potassium Level 4.1 MEQ/L 4.4 MEQ/L Chloride Level 102 MEQ/L 101 MEQ/L Carbon Dioxide Level 26.0 MEQ/L 25.3 MEQ/L Anion Gap 9 MEQ/L 9 MEQ/L Estimat Glomerular Filtration Rate 37 ML/MIN 34 ML/MIN GENERAL: Patient is in no acute distress. HEENT: EOMI, No icterus. Moist mucosa. NECK: Supple. LUNGS: Clear breath sounds. CARDIAC: Regular rate and rhythm ABDOMEN: Soft, non tender. EXTREMITIES: Erythema at the tibia and thighs is now much improved. Still has 1+ edema. SKIN: No rash. Assessment & Plan Diagnosis: (1) Bilateral lower leg cellulitis ICD Codes: L03.116 - Cellulitis of left lower limb; L03.115 - Cellulitis of right lower limb Status: Acute. Improving. Continue IV Vancomycin today Continue IV Ceftriaxone today. Can discharge on PO Keflex 250 Po QID x 7 days on 02/11/17. Ricky Franklin MD Feb 10, 2017 16:52
[2017-02-10] MEDS: cefTRIAXone 1,000 MG/NS 100 ML IV SCH ×2 (17:22)
[2017-02-10] MEDS: INSULIN ASPART 1,000 UNITS/10 ML VIAL SQ SCH (17:25)
[2017-02-10] MEDS ORDERED: PHARMACY ORDERED LAB ONE (17:45)
[2017-02-10] MEDS: VANCOMYCIN INJ 1,800 MG in SODIUM CHLORID 0.9% 500 ML INJ 500 ML IV SCH (18:23)
[2017-02-10 20:00] VITALS: BP 145/87; PULSE 72; RESP 20; TEMP 96.4; O2SAT 96
[2017-02-10] MEDS: PRAVASTATIN SOD 80 MG TAB PO SCH (20:53)
[2017-02-10] MEDS: INSULIN DETEMIR 100 UNITS/ML VIAL SQ SCH (21:51)
[2017-02-11] VITALS: BP 154/84; PULSE 71; RESP 20; TEMP 96.3; O2SAT 96
[2017-02-11] MEDS: traMADol HCL 50 MG TAB PO PRN ×3 (00:52→12:19)
[2017-02-11] MEDS: LEVOTHYROXINE SODIUM 125 MCG TAB PO SCH (05:54)
[2017-02-11 06:14] LABS: POTASSIUM 4.4 MEQ/L (3.5-5.1)
[2017-02-11 06:17] LABS: BICARBONATE 24.6 MEQ/L (21.0-32.0); MAGNESIUM 2.3 MG/DL (1.5-2.5)
[2017-02-11 08:00] VITALS: BP 141/95; PULSE 73; RESP 14; TEMP 96.5; O2SAT 97
--- NOTE | 2017-02-11 09:02 | PD.CONS ---
[facility] Service Nephrology Consult Requested By Dr. Spear Reason for Consult Acute on Chronic Renal Insufficiency Primary Care Physician Leesa Turk MD History of Present Illness The patient is a 71 yo [place] female who presented to [facility] on 02/05 with complaints of bilat leg pain and redness. Has significant chronic lymphedema and has had multiple issues with her legs in the past. She is under the care of peoplesoft consultant Dr. Cotton and mentions recent penicillin for infection. When pain and redness worsened, she decided to come to the hospital for evaluation. She has been on IV abx as prescribed by ID and is feeling much better. We have been consulted for renal insufficiency. Renal functions have improved since her admission as her po Lasix has been held for concern for dehydration. She states she has been aware of renal decline for the past year, but uncertain of her baseline function. She is a diabetic since 2001 with complication fo neuropathy. Hypertensive x40 years that she says has been well controlled. Denies any hx of proteinuria. Denies NSAID use. Mentions that last month she had "both kidneys stented". Review of records shows on 12/08/16 she underwent bilateral renal artery stenting with IR, Dr. Pena. Mention of baseline SCr of 1.7 on that encounter. There are plans for discharge today, but she is wanting to have an outpatient plastics tooling engineer for follow up. Admitting SCr 2.00 that improved to 1.40 at time of consult. Follows outpatient with Drs. Turk and Sherie. (Rose Mary Sandoval) Review of Systems Cardiovascular: COMPLAINS OF: Lower Extremity Edema (Rose Mary Sandoval) Past Family Social History Allergies: Coded Allergies: codeine (Unverified Allergy, Severe, Respiratory Failure, 02/05/17) Past Medical History CKD uncertain baseline DM since 2001 HTN x40 years A. fib Lymphedema Hypothyroidism Past Surgical History Partial thyroidectomy Pacer placement Hysterectomy Reported Medications Reported Meds & Active Scripts Active Reported Metoprolol Tartrate 100 Mg Tab 100 Mg PO BID Iron (Ferrous Sulfate) 325 Mg Cap 65 Mg PO DAILY Prilosec (Omeprazole Magnesium) 20 Mg Tab D3 Ultra Strength (Cholecalciferol) 5,000 Unit Cap 5,000 Units PO DAILY [Potassium Gluconate] 99 Mg BID Levothyroxine (Levothyroxine Sodium) 50 Mcg Tab 125 Mcg PO DAILY Amlodipine (Amlodipine Besylate) 10 Mg Tab 10 Mg PO DAILY Digoxin 0.125 Mg Tab 0.125 Mg PO EVERY OTHER DAY Allopurinol 100 Mg Tab 100 Mg PO DAILY Terazosin (Terazosin HCl) 2 Mg Cap 2 Mg PO BID Furosemide 40 Mg Tab 80 Mg PO AC BREAKFAST Furosemide 40 Mg Tab 40 Mg PO AC LUNCH Simvastatin 40 Mg Tab 40 Mg PO HS Diltiazem ER 24 HR 240 Mg Caper 240 Mg PO DAILY Enalapril (Enalapril Maleate) 20 Mg Tab 20 Mg PO BID Eliquis (Apixaban) 5 Mg Tab 5 Mg PO BID Apidra Solostar Pen Inj (Insulin Glulisine Inj) 300 Unit/3 Ml Pen 8 Units SQ TIDAC Lantus Solostar Pen Inj (Insulin Glargine) 300 Unit/3 Ml Pen 80 Units SQ BID Active Ordered Medications Current Medications Medications (Trade) Dose Ordered Sig/Marilee Route Start Time Stop Time Status Last Admin (NS Flush) 2 ml BID IV FLUSH 02/05/17 21:00 02/10/17 21:00 (NS Flush) 2 ml UNSCH PRN IV FLUSH 02/05/17 18:00 Pharmacy Profile Note 0 ml @ 0 mls/hr UNSCH OTHER 02/05/17 18:00 (Tylenol) 500 mg Q4H PRN PO 02/05/17 18:00 02/07/17 20:07 (D50w (Vial) Inj) 50 ml UNSCH PRN IV PUSH 02/05/17 18:00 (Glucagon Inj) 1 mg UNSCH PRN OTHER 02/05/17 18:00 (NovoLOG SUPPLEMENTAL SCALE) 1 ACHS SLIDING SCALE SQ 02/05/17 21:00 02/10/17 17:26 (Zyloprim) 100 mg DAILY PO 02/06/17 09:00 02/10/17 08:01 (Eliquis) 5 mg BID PO 02/05/17 21:00 02/10/17 20:52 (Lanoxin) 0.125 mg EVERY OTHER DAY PO 02/07/17 09:00 02/09/17 08:36 (Cardizem Cd) 240 mg DAILY PO 02/06/17 09:00 02/10/17 08:01 (Vasotec) 20 mg BID PO 02/05/17 21:00 02/10/17 20:53 (Synthroid) 125 mcg DAILY@0600 PO 02/06/17 06:00 02/11/17 05:54 (Hytrin) 2 mg BID PO 02/05/17 21:00 02/10/17 20:52 (Ferrous Sulfate) 325 mg DAILY PO 02/06/17 09:00 02/10/17 08:00 (Pravachol) 80 mg HS PO 02/05/17 21:00 02/10/17 20:53 Vancomycin HCl 1800 mg/Sodium Chloride 518 ml @ 250 mls/hr Q48H IV 02/06/17 18:00 02/10/17 18:23 Ceftriaxone Sodium 1000 mg/ Sodium Chloride 100 ml @ 200 mls/hr Q24H IV 02/06/17 17:00 02/10/17 17:22 (Ultram) 50 mg Q6H PRN PO 02/06/17 16:45 02/11/17 06:20 (Levemir Inj) 40 units HS SQ 02/07/17 21:00 02/10/17 21:51 (Lopressor) 100 mg Q12HR PO 02/09/17 09:00 02/10/17 20:52 (Lac-Hydrin 12% Lotion) 1 applic BID TOPICAL 02/10/17 11:15 02/10/17 20:57 (Lasix) 40 mg BID@09,18 PO 02/10/17 12:15 Future hold 02/10/17 13:57 (NovoLOG INJ) 5 units TIDAC SQ 02/10/17 17:00 02/10/17 17:25 (Prinivil) 2.5 mg DAILY PO 02/10/17 12:30 02/10/17 13:57 (Pill Splitter) 1 ea UNSCH PRN OTHER 02/10/17 14:00 (Tylenol) 650 mg Q4H PRN PO 02/10/17 14:00 02/10/17 17:22 Family History DM and HTN No known FHx of kidney disease nor dialysis Social History Single. Lives locally in [place] Denies tobacco, EtOH, illicits (Rose Mary Sandoval) Physical Exam Vital Signs Vital Signs Date Time Temp Pulse Resp B/P (MAP) Pulse Ox O2 Delivery O2 Flow Rate FiO2 02/11/17 00:00 96.3 71 20 154/84 (107) 96 02/10/17 20:00 96.4 72 20 145/87 (106) 96 02/10/17 16:00 96.4 72 14 142/88 (106) 98 02/10/17 12:00 95.5 64 14 136/85 (102) 93 Physical Exam GENERAL: Sitting up in chair having breakfast. In NAD SKIN: Warm and dry. HEAD: Atraumatic. Normocephalic. EYES: Pupils equal and round. No scleral icterus. No injection or drainage. ENT: No nasal bleeding or discharge. Mucous membranes pink and moist. NECK: Trachea midline. No JVD. CARDIOVASCULAR: Regular rate and rhythm. RESPIRATORY: No accessory muscle use. Clear to auscultation. Breath sounds equal bilaterally. GASTROINTESTINAL: Abdomen soft, non-tender, nondistended. Hepatic and splenic margins not palpable. MUSCULOSKELETAL: Extremities without clubbing, cyanosis. Significant bilat lymphedema with superimposed pitting edema trace-1+ into thighs NEUROLOGICAL: Awake and alert. Normal speech. PSYCHIATRIC: Appropriate mood and affect; insight and judgment normal. Laboratory Laboratory Tests Test 02/10/17 17:30 02/11/17 05:55 Vancomycin Level Trough 12.2 Blood Urea Nitrogen 31 Creatinine 1.40 Random Glucose 191 Calcium Level 8.6 Magnesium Level 2.3 Sodium Level 135 Potassium Level 4.4 Chloride Level 102 Carbon Dioxide Level 24.6 Anion Gap 8 Estimat Glomerular Filtration Rate 37 Date/Time Source Procedure Growth Status 02/05/17 15:45 Blood Peripheral Aerobic Blood Culture - Final NO GROWTH IN 5 DAYS Complete 02/05/17 15:45 Blood Peripheral Anaerobic Blood Culture - Final NO GROWTH IN 5 DAYS Complete (Rose Mary Sandoval) Result Diagram: 02/09/17 0515 02/11/17 0555 Imaging Last Impressions Lower Extremity Ultrasound 02/05/17 1521 Signed Impressions: Service Date/Time: Sunday, February 05, 2017 16:12 - CONCLUSION: Normal examination. Abhi Pena Jr., MD (Rose Mary Sandoval) Assessment and Plan Problem List: (1) Acute on chronic renal insufficiency ICD Codes: N28.9 - Disorder of kidney and ureter, unspecified; N18.9 - Chronic kidney disease, unspecified Plan: Acute renal decline potentially related to volume depletion as her functions did improve with holding Lasix. From what I can gather, her current SCr is likely her baseline. There is nothing further to add regarding her current admission, however, she was encouraged to follow up with us as an outpatient within the next 1-2 weeks. It is recommended that she be discharged on previous home regimen and we can adjust if needed as outpatient after more information gathered. She does take a fairly high dose of Lasix at 80mg in the AM and 20mg in the PM which she says she has been on for some time prescribed by Dr. Bhandari. We will try to get most recent notes and echocardiogram. Once her cellulitis is cleared, she would likely benefit from lymphedema clinic intervention. OK to discharge from renal standpoint. Will see in outpatient office. Pt was in verbal agreement to the above. (2) Bilateral lower leg cellulitis ICD Codes: L03.116 - Cellulitis of left lower limb; L03.115 - Cellulitis of right lower limb Status: Acute Plan: Mgmt as per Dr. Franklin (3) Hypertension ICD Codes: I10 - Essential (primary) hypertension Status: Acute Plan: BP controlled. Noted she is on both Enalapril and Lisinopril. Primary says he will D/C the Lisinopril and she will remain on Enalapril as per her outpatient medications. (4) Diabetes mellitus, type II ICD Codes: E11.9 - Type 2 diabetes mellitus without complications Status: Acute Plan: Mgmt as per primary (5) Renal artery stenosis, picayune, bilateral ICD Codes: I70.1 - Atherosclerosis of renal artery Plan: Will request additional records to review for her f/u appt. SCr stable and BP controlled. (Rose Mary Sandoval) Assessment and Plan The exam, history, and the medical decision-making described in the above note were completed with the assistance of the PA-C. I reviewed and agree with the findings presented. (Candace Walker MD) Rose Mary Sandoval Feb 11, 2017 09:02 Candace Walker MD Feb 11, 2017 14:31
[2017-02-11] MEDS: INSULIN ASPART 1,000 UNITS/10 ML VIAL SQ SCH ×2 (09:04→12:00)
[2017-02-11] MEDS: INSULIN ASPART SUPPLEMENTAL SCALE SQ SCH ×2 (09:04→12:00)
[2017-02-11] MEDS: SODIUM CHLORIDE 0.9% FLUSH 10 ML FLUSH IV FLUSH SCH (09:05)
[2017-02-11] MEDS: DILTIAZEM-CD 240 MG CAP ER PO SCH (09:06)
[2017-02-11] MEDS: DIGOXIN 0.125 MG TAB PO SCH (09:06)
[2017-02-11] MEDS: FUROSEMIDE 40 MG TAB PO SCH (09:06)
[2017-02-11] MEDS: LISINOPRIL 5 MG TAB PO SCH (09:07)
[2017-02-11] MEDS: APIXABAN 5 MG TABLET PO SCH (09:07)
[2017-02-11] MEDS: ENALAPRIL MALEATE 10 MG TAB PO SCH (09:07)
[2017-02-11] MEDS: TERAZOSIN HCL 1 MG CAP PO SCH (09:08)
[2017-02-11] MEDS: ALLOPURINOL 100 MG TAB PO SCH (09:08)
[2017-02-11] MEDS: METOPROLOL TARTRATE 100 MG TAB PO SCH (09:08)
[2017-02-11] MEDS: FERROUS SULFATE 325 MG (65 MG ELEMENTAL IRON) TAB PO SCH (09:08)
[2017-02-11] MEDS ORDERED: ULTR50TA5 PO (09:25)
[2017-02-11] MEDS ORDERED: CEPH-459 PO (09:25)
--- NOTE | 2017-02-11 09:27 | HHI.DCPOC ---
Discharge Care Plan Diagnosis: (1) Edema (2) Bilateral lower leg cellulitis (3) Hypertension (4) Diabetes mellitus, type II (5) Atrial fibrillation (6) CKD (chronic kidney disease) (7) Renal artery stenosis, kiana, bilateral Goals to Promote Your Health * To prevent worsening of your condition and complications * To maintain your health at the optimal level Directions to Meet Your Goals Take your medications as prescribed Follow your dietary instruction Follow activity as directed Keep your appointments as scheduled Take your immunizations and boosters as scheduled If your symptoms worsen call your PCP, if no PCP go to Urgent Care Center or Emergency Room Smoking is Dangerous to Your Health. Avoid second hand smoke Call the 24-hour hour crisis hotline for domestic abuse at Yobani Spear DO Feb 11, 2017 09:27
--- NOTE | 2017-02-11 09:29 | HHI.DS ---
Discharge Summary Admission Date Feb 05, 2017 at 18:00 Discharge Date: Feb 11, 2017 Admitting Diagnosis left leg cellulitis. Chronic renal disease. (1) Left leg cellulitis ICD Code: L03.116 - Cellulitis of left lower limb Status: Acute (2) Hypertension ICD Code: I10 - Essential (primary) hypertension Status: Acute (3) Diabetes mellitus, type II ICD Code: E11.9 - Type 2 diabetes mellitus without complications Status: Acute (4) Atrial fibrillation ICD Code: I48.91 - Unspecified atrial fibrillation Status: Acute (5) Edema ICD Code: R60.9 - Edema, unspecified (6) CKD (chronic kidney disease) ICD Code: N18.9 - Chronic kidney disease, unspecified Status: Acute (7) Bilateral lower leg cellulitis ICD Code: L03.116 - Cellulitis of left lower limb; L03.115 - Cellulitis of right lower limb Diagnosis: Principal Status: Acute Procedures None Brief History - From Admission This patient is a 71-year-old female with diabetes who has come to the hospital with left lower extremity pain for the last 24 hours. She reports chronic skin changes in the lower extremity consistent with venous stasis and lipo sclerosis. The patient has also chronic kidney disease and diabetes. She also trauma to the area but notes over the last wave hours the area in her lateral thigh and medial thigh has become increasingly edematous and erythematous with extreme amount of pain. The pain is severe and worse with touching and relieved with rest. She also fevers objectively but says she has felt warm and has had chills. Her daughter brought her in the hospital for these in issues. She does have leukocytosis. She notes no recent travel or trauma to the area. Patient admitted to the hospital for further evaluation of rapidly progressive cellulitis in diabetic patient Of note the patient has multiple medications which are duplicate in class. She is unsure what she be usually takes. Patient also recently had a evaluation and treatment with renal artery stent with interventional radiology team here at [facility]. She has chronic kidney disease but does not have a account contact associate CBC/BMP: 02/09/17 0515 02/11/17 0555 Significant Findings Laboratory Tests Test 02/09/17 05:15 02/10/17 07:44 02/10/17 17:30 02/11/17 05:55 Red Blood Count 3.29 MIL/MM3 (4.00-5.30) Hemoglobin 9.3 GM/DL (11.6-15.3) Hematocrit 29.1 % (35.0-46.0) Blood Urea Nitrogen 32 MG/DL (7-18) 34 MG/DL (7-18) 31 MG/DL (7-18) Creatinine 1.40 MG/DL (0.50-1.00) 1.50 MG/DL (0.50-1.00) 1.40 MG/DL (0.50-1.00) Random Glucose 117 MG/DL (74-106) 166 MG/DL (74-106) 191 MG/DL (74-106) Calcium Level 8.1 MG/DL (8.5-10.1) Estimat Glomerular Filtration Rate 37 ML/MIN (>89) 34 ML/MIN (>89) 37 ML/MIN (>89) Sodium Level 135 MEQ/L (136-145) 135 MEQ/L (136-145) Vancomycin Level Trough 12.2 MCG/ML (5.0-10.0) Imaging Last Impressions Lower Extremity Ultrasound 02/05/17 1521 Signed Impressions: Service Date/Time: Tuesday, February 05, 2017 16:12 - CONCLUSION: Normal examination. Abhi Pena Jr., MD PE at Discharge GENERAL: This is a well-nourished, well-developed patient, in no apparent distress. HEENT: NC, AT. CARDIOVASCULAR: Regular rate and rhythm without murmurs, gallops, or rubs. RESPIRATORY: Clear to auscultation. Breath sounds equal bilaterally. No wheezes , rales, or rhonchi. GASTROINTESTINAL: Abdomen soft, non-tender, nondistended. Normal active bowel sounds MUSCULOSKELETAL: Bilateral lower extremity edema with improved erythema. Nontender to palpation. NEURO: Alert & Oriented x4 to person, place, time, situation. Moves all ext x4. PSYCH: Mood and affect appropriate. Pt update on day of discharge The patient was feeling well. She had no acute complaint. She said her cellulitis was getting better. She wanted to leave the hospital. She was about to be seen by nephrology. Hospital Course Cellulitis Patient with chronic venous stasis with superimposed cellulitis. ID was consulted. She was continued on IV vancomycin and ceftriaxone. Blood cultures with no growth. She received pain control as needed. Her diuretics were resumed. She will complete a course of Keflex and will follow up with her PCP Acute on chronic renal disease S/p IVFs. Unsure of baseline. Creatinine has been stable. Lasix was resumed. Nephrology was consulted. She will resume her home diuretic regimen. She will follow-up with nephrology as an outpt. Hypertension We d/c amlodipine as it has the side effect of lower extremity edema. She will continue her home regimen including enalapril. Diabetes mellitus We started long acting insulin at a lower dose than her home dose. We added 5 units aspart with meals and an insulin sliding scale. She will resume her home regimen. Atrial fibrillation Patient is on Eliquis, digoxin, metoprolol and Cardizem. Also has a pacemaker. She will continue her home meds. Pt Condition on Discharge: Stable Discharge Disposition: Discharge Home Discharge Time: > 30 minutes Discharge Instructions DIET: Follow Instructions for: Diabetic Diet Activities you can perform: Weight Bearing as Milad Follow up Referrals: Nephrology - [address] Walker PCP Follow-up - 1 Week Podiatry - 2 Weeks New Medications: Cephalexin (Keflex) 250 Mg Cap 250 MG PO Q6H for Infection for 7 Days, #28 CAP 0 Refills Tramadol (Ultram) 50 Mg Tab 50 MG PO Q6H PRN for PAIN SCALE 1 TO 10, #12 TAB Continued Medications: Allopurinol (Allopurinol) 100 Mg Tab 100 MG PO DAILY for Gout, #30 TAB 0 Refills Apixaban (Eliquis) 5 Mg Tab 5 MG PO BID for Blood Clot Prevention, #60 TAB 0 Refills Cholecalciferol (D3 Ultra Strength) 5,000 Unit Cap 5000 UNITS PO DAILY for Nutritional Supplement, #30 CAP 0 Refills Digoxin (Digoxin) 0.125 Mg Tab 0.125 MG PO EVERY OTHER DAY for Regulate Heart Beat, #30 TAB 0 Refills Diltiazem ER 24 HR (Diltiazem ER 24 HR) 240 Mg Caper 240 MG PO DAILY, #30 CAP 0 Refills Enalapril (Enalapril) 20 Mg Tab 20 MG PO BID, #30 TAB 0 Refills Ferrous Sulfate (Iron) 325 Mg Cap 65 MG PO DAILY for Nutritional Supplement, #30 TAB 0 Refills Furosemide (Furosemide) 40 Mg Tab 40 MG PO AC LUNCH, #60 TAB 0 Refills Furosemide (Furosemide) 40 Mg Tab 80 MG PO AC BREAKFAST, #30 TAB 0 Refills Insulin Glargine Inj (Lantus Solostar Pen Inj) 300 Unit/3 Ml Pen 80 UNITS SQ BID for Blood Sugar Management, PEN 0 Refills Insulin Glulisine Inj (Apidra Solostar Pen Inj) 300 Unit/3 Ml Pen 8 UNITS SQ TIDAC for Blood Sugar Management, #15 ML 0 Refills Levothyroxine (Levothyroxine) 50 Mcg Tab 125 MCG PO DAILY for Thyroid, #30 TAB 0 Refills Metoprolol Tartrate (Metoprolol Tartrate) 100 Mg Tab 100 MG PO BID, #60 TAB 0 Refills Omeprazole Magnesium (Prilosec) 20 Mg Tab Simvastatin (Simvastatin) 40 Mg Tab 40 MG PO HS for Cholesterol Management, #30 TAB 0 Refills Terazosin (Terazosin) 2 Mg Cap 2 MG PO BID, #30 CAP 0 Refills [Potassium Gluconate] () 99 MG BID Discontinued Medications: Amlodipine (Amlodipine) 10 Mg Tab 10 MG PO DAILY for Blood Pressure Management, #30 TAB 0 Refills Yobani Spear DO Feb 11, 2017 09:29
[2017-02-11] MEDS: LACTIC ACID (AMMONIUM LACTATE) 12% LOTION 225 GM BTL TOPICAL SCH (12:20)
== END 2017-02-11 12:44 | disposition home or self-care (01) | DRG 603 ==
LOC: PHED 13:56 → PHEDA 18:00 → PH3B 19:46
PROVIDERS: ADMIT Hospitalist; ATTEND Hospitalist
DX: L03.116 Cellulitis of left lower limb (principal); N18.4 Chronic kidney disease, stage 4 (severe); E11.22 Type 2 diabetes mellitus with diabetic chronic kidney disease; E11.40 Type 2 diabetes mellitus with diabetic neuropathy, unspecified; I48.91 Unspecified atrial fibrillation; N17.9 Acute kidney failure, unspecified; E11.649 Type 2 diabetes mellitus with hypoglycemia without coma; E86.0 Dehydration; I70.1 Atherosclerosis of renal artery; I12.9 Hypertensive chronic kidney disease with stage 1 through stage 4 chronic kidney disease, or unspecified chronic kidney disease; E89.0 Postprocedural hypothyroidism; R60.0 Localized edema; I87.8 Other specified disorders of veins; L03.115 Cellulitis of right lower limb; M10.9 Gout, unspecified; Z95.0 Presence of cardiac pacemaker; Z79.02 Long term (current) use of antithrombotics/antiplatelets; Z79.4 Long term (current) use of insulin; Z88.5 Allergy status to narcotic agent; Z23 Encounter for immunization
CPT/HCPCS: 80048; 80053; 80162; 80202; 81001; 82948; 83605; 83735; 84443; 85025; 85027; 87040; 90471; 90732; 93971; G0009; J0696; J1644; J1815; J2543; J3370; J7030; J7040; J7050